=== PATIENT | female | born 1990 | race Caucasian/White ===

== ENCOUNTER 2016-12-05 07:32 | Emergency (ER) | payer OTHER ==
[2016-12-05 07:41] VITALS: BP 116/63; PULSE 92; RESP 16; TEMP 97.7
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
[2016-12-05] MEDS: IBUPROFEN 600 MG STARTER PACK 4 TAB BTL PO STA (08:47)
== END 2016-12-05 08:47 | disposition home or self-care (01) ==
LOC: EC 07:32
DX: L03.211 Cellulitis of face (principal); F41.9 Anxiety disorder, unspecified; F32.9 Major depressive disorder, single episode, unspecified; Z79.899 Other long term (current) drug therapy; Z88.8 Allergy status to other drugs, medicaments and biological substances; Z88.5 Allergy status to narcotic agent; F17.210 Nicotine dependence, cigarettes, uncomplicated
CPT/HCPCS: 99283

== ENCOUNTER 2016-12-05 13:42 | Inpatient (IN) | payer OTHER ==
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
[2016-12-05] MEDS ORDERED: RX INFO: IV CONTRAST WAS GIVEN 1 EACH MISC MISCELLANE PRN (15:54)
[2016-12-05] MEDS ORDERED: HYDROcodone/APAP 5-325MG 1 EACH TAB PO STA (16:00)
[2016-12-05 16:18] LABS: Basophils # (A) 0.1 k/uL (0-0.2); Basophils % (A) 1 %; CHCM 33.2; Eosinophils # (A) 0.3 k/uL (0-0.7); Eosinophils % (A) 3 %; HCT 42.1 % (34.0-46.0); HDW 2.38; HGB 13.6 gm/dL (11.4-16.0); Luc # (Auto) 0.21; Luc % (Auto) 2; Lymphocytes # (A) 2.6 k/uL (1.0-4.8); Lymphocytes % (A) 29 %; MCH 30.3 pg (25.0-35.0); MCHC 32.4 g/dL (31.0-37.0); MCV 93.6 fL (80.0-100.0); Monocytes # (A) 0.6 k/uL (0-1.0); Monocytes % (A) 7 %; Neutrophils # (A) 5.1 k/uL (1.3-7.7); Neutrophils % (A) 58 %; RBC 4.49 m/uL (3.80-5.40); RDW 11.8 % (11.5-15.5); WBC 8.8 k/uL (3.8-10.6); WBC (Perox) 8.81
[2016-12-05 16:25] LABS: Anion Gap 11 mmol/L; Blood Urea Nitrogen 7 mg/dL (7-17); Calcium 9.3 mg/dL (8.4-10.2); Carbon Dioxide 29 mmol/L (22-30); Chloride 105 mmol/L (98-107); Glucose 101 mg/dL (74-99); Non-African American GFR(MDRD) >60 (>60 ml/min/1.73 sqM); Potassium 4.3 mmol/L (3.5-5.1); Sodium 145 mmol/L (137-145)
[2016-12-05] MEDS ORDERED: KETOROLAC 30 MG/ML 1 ML VIAL IVP STA (16:52)
--- NOTE | 2016-12-05 17:01 | CT ---
EXAMINATION TYPE: CT orbits w con DATE OF EXAM: 12/05/2016 4:51 PM COMPARISON: NONE HISTORY: redness, swelling and pain around bilateral orbits for [address] DLP: 350 mGycm Automated exposure control for dose reduction was used. Contrast-enhanced CT of the orbits was performed in the axial and coronal planes. Bone and soft tissu e window settings are submitted. CONTRAST: Performed with IV Contrast, patient injected with 100 mL of Omnipaque 300. FINDINGS: Subcutaneous phlegmon is noted adjacent to the left maxilla anteromedially with small subperiosteal a bscess noted measuring 6.7 mm seen best on axial image 5 of 46. Dental structures are cut off the fie ld-of-view. There is some mucosal thickening involving bilateral maxillary sinuses mild in degree. Th ere is only mild right infraorbital soft tissue swelling noted without phlegmon or abscess. The orbit s are intact. I do not see evidence for preseptal or postseptal cellulitis. Optic nerves and extraocu lar musculature appear to be symmetric and unremarkable. Intra and extraconal fat are within normal l imits. Incidental nasal septal deviation right to left. IMPRESSION: BILATERAL INFRAORBITAL SOFT TISSUE EDEMA LEFT MUCH GREATER THAN RIGHT. NOTED ANTERIOR TO THE LEFT MAXILLATHERE IS AN AREA OF INFLAMMATORY PHLEGMON MEASURING 2.2 X 1.3 CM WITH SMALL SUBPERIOSTEAL ABSC ESS MEASURING 6.7 MM. DENTAL STRUCTURES ARE CUT OFF THE [id number].
[2016-12-05] MEDS ORDERED: HYDROmorphone 1 MG/ML 1 ML SYRINGE IVP STA (17:28)
[2016-12-05] MEDS ORDERED: HYDROcodone/APAP 5-325MG 1 EACH TAB PO PRN (19:10)
[2016-12-05] MEDS ORDERED: NALOXONE 0.4 MG/ML 1 ML VIAL IV PRN (19:10)
[2016-12-05] MEDS ORDERED: ACETAMINOPHEN TAB 325 MG TAB PO PRN (19:10)
[2016-12-05] MEDS ORDERED: HYDROmorphone 1 MG/ML 1 ML SYRINGE IV PRN (19:10)
--- NOTE | 2016-12-05 20:09 | XR ---
EXAMINATION TYPE: XR panorex DATE OF EXAM: 12/05/2016 7:32 PM COMPARISON: NONE HISTORY: Pain, suspect left maxillary dental abscess TECHNIQUE: Panorex FINDINGS: The left maxilla is not well-visualized, and the patient is virtually edentulous in this po sition. In addition, the left maxilla appears somewhat lucent overall, a nonspecific finding. Further diagnostic characterization can be provided with thin section CT imaging of the oral cavity if clini jesús necessary. Bones and joints and soft tissues are unremarkable otherwise. IMPRESSION: Nonspecific findings as discussed.
[2016-12-05] MEDS ORDERED: HYDROmorphone 1 MG/ML 1 ML SYRINGE IVP SCH (21:00)
[2016-12-05] MEDS: MIRTAZAPINE 15 MG TAB PO SCH (21:07)
[2016-12-05] MEDS: SODIUM CHLORIDE 0.9% 1,000 ML IV SCH (21:07)
[2016-12-05 22:54] VITALS: BMI 27.4
[2016-12-05] MEDS ORDERED: DIAZEPAM 5 MG TAB PO STA (23:23)
[2016-12-06] MEDS: HYDROmorphone 1 MG/ML 1 ML SYRINGE IVP PRN ×5 (00:04→12:27)
[2016-12-06] MEDS: IBUPROFEN 400 MG TAB PO PRN ×2 (03:33→14:27)
[2016-12-06] MEDS ORDERED: INFLUENZA VACCINE (3YR+) 60 MCG/0.5 ML SYRINGE IM ONE (06:25)
[2016-12-06] MEDS ORDERED: NON-FORMULARY DRUG (Vortioxetine Hydrobromide [Trintellix] 10 MG) PO SCH (09:00)
[2016-12-06 09:13] LABS: Basophils % (A) 1 %; CH 30.7; CHCM 32.4; Eosinophils # (A) 0.2 k/uL (0-0.7); Eosinophils % (A) 3 %; HCT 37.5 % (34.0-46.0); HDW 2.41; HGB 12.2 gm/dL (11.4-16.0); Luc # (Auto) 0.12; Luc % (Auto) 2; Lymphocytes # (A) 1.7 k/uL (1.0-4.8); Lymphocytes % (A) 25 %; MCH 30.9 pg (25.0-35.0); MCHC 32.4 g/dL (31.0-37.0); MCV 95.2 fL (80.0-100.0); Mean Platelet Volume 7.2; Monocytes # (A) 0.5 k/uL (0-1.0); Monocytes % (A) 8 %; Neutrophils # (A) 4.3 k/uL (1.3-7.7); Neutrophils % (A) 62 %; RBC 3.94 m/uL (3.80-5.40); WBC 6.9 k/uL (3.8-10.6); WBC (Perox) 7.56
[2016-12-06 09:39] LABS: ALT 146 U/L (9-52); AST 137 U/L (14-36); Alkaline Phosphatase 95 U/L (38-126); Anion Gap 8 mmol/L; Blood Urea Nitrogen 6 mg/dL (7-17); Calcium 8.5 mg/dL (8.4-10.2); Carbon Dioxide 28 mmol/L (22-30); Chloride 107 mmol/L (98-107); Glucose 87 mg/dL (74-99); Non-African American GFR(MDRD) >60 (>60 ml/min/1.73 sqM); Potassium 4.3 mmol/L (3.5-5.1); Sodium 143 mmol/L (137-145); Total Bilirubin 0.5 mg/dL (0.2-1.3)
[2016-12-06] MEDS ORDERED: DIAZEPAM 5 MG TAB PO PRN ×2 (14:36→15:55)
[2016-12-06] MEDS ORDERED: CLINDAMYCIN 300 MG in DEXTROSE 5% IN WATER 50 ML IVPB SCH ×2 (16:00)
[2016-12-06] MEDS: ACETAMINOPHEN IV (For NPO) 1,000 MG in EMPTY BAG 1 BAG IVPB SCH (16:34)
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
[2016-12-06] MEDS: NICOTINE 21MG/24HR PATCH TRANSDERM SCH (18:22)
[2016-12-06] MEDS: DEXAMETHASONE SOD PHOSPHATE 10 MG/ML 1 ML VIAL IV SCH ×2 (18:22→23:19)
[2016-12-06] MEDS: cefTRIAXone 2,000 MG in SODIUM CHLORIDE 0.9% 100 ML IVPB SCH (20:07)
[2016-12-06] MEDS: SODIUM CHLORIDE 0.9% 1,000 ML IV SCH (20:10)
--- NOTE | 2016-12-06 20:34 | CONS ---
DATE OF CONSULTATION: 12/05/2016 REASON FOR CONSULTATION: Left facial swelling/cellulitis/abscess. HISTORY OF PRESENT ILLNESS: This patient is a 26-year-old female who was admitted via the [facility] for treatment and evaluation of complaints of pain with eye movement, left facial swelling. The patient states that her symptoms started approximately 2 to 3 days prior to presenting to the emergency room. She did eventually seek medical attention and was placed on Cleocin capsules. She took 1 or 2 doses and did not notice any improvement and in fact, her symptoms seemed to get worse. The patient smokes approximately 1-1/2 packs of cigarettes per day. She has a long history of drug abuse. Although she states that she has not used drugs for the past 7 years, in my opinion this is questionable. At the present time, the patient is getting intravenous Dilaudid and states that it does not seem to be enough; however, her complaints of pain seem to be far exaggerated and well beyond the signs of pain that she is displaying. That is to say, the patient is talking without any discomfort and she apparently is eating without any significant discomfort. A CT scan and panorex done previously suggested mild left infraorbital swelling/cellulitis and a possible small subperiosteal abscess in the premaxillary area on the left. This was in the region of one of the patient's upper teeth. Although the patient seems to be eating quite well without complaints of any pain it may very well be because the nerve to the tooth is completely . The patient has been afebrile and also has a normal white count since her admission. She was admitted and immediately placed on intravenous antibiotics, Rocephin and Cleocin. In addition to this, she was given intravenous Dilaudid q.4 hours on a p.r.n. basis and according to the nurses, she has been asking for this on a regular basis. She has also been given Motrin 400 mg q.i.d. The patient denies any past history of any similar problems with respect to infections. Based upon the review of the panorex and the CT scan of the face, it is highly suggestive that the patient has a small ashley-apical abscess which is that extended somewhat superiorly into the facial soft tissues. Past medical history reveals THE PATIENT HAS ALLERGIES TO MORPHINE, HALDOL. Current medications include: 1. Trintellix. 2. Remeron. 3. Motrin and 4. Valium. It is to be noted that the patient was on Valium at home 5 mg t.i.d., but stated to me that she was actually on 10 mg at home 5 times daily. I initially agreed to up her dose of Valium, but later after reviewing the records and finding the 5-mg dose, I lowered it back to 5 mg 5 times daily. In addition to this, the patient actually informed the nurse that she was taking 20 mg 5 times daily, which is way outside the normal range and highly suggestive the fact that the patient is not completely truthful with the medical staff. She smokes approximately 1-1/2 packs of cigarettes per day. Review of systems is essentially unremarkable. PHYSICAL EXAMINATION: This patient is normocephalic. Tympanic membranes are normal. Middle ear space is free of any fluid or infection. Pupils equal, round and reactive to light and accommodation. Extraocular movements are within normal limits. Intranasal reveals moderate to severe septal deviation with compensatory hypertrophy of inferior turbinates. Intraoral examination reveals extremely poor dentition with multiple carious teeth on the mandible and on the maxilla. Palpation of the tooth in question which appears to be either a premolar or a canine tooth does not elicit any pain with palpation of the tooth itself, However, deep pressure on the surrounding gum tissues does elicit mild, but not exquisite pain. In addition to this, palpation of the facial area where the patient states that she is having the most severe pain only elicits mild tenderness. I do not feel any evidence of any fluctuance or crepitance or any suggestion of any significant abscess formation. Again, the patient's extraocular movements were within normal limits and at the time that I examined her, she was not complaining of any pain with respect to her eyes and in addition to this, she has been able to eat a normal meal. Remainder of the oropharynx is essentially unremarkable. Palpation of the neck and Cranial nerves 2-12 intact and remainder of the head and neck are all within normal limits. CHEST/CARDIOVASCULAR: Both lung ruiz are clear to percussion and auscultation. The patient is in regular sinus rhythm. S1 and S2 were present without evidence of any murmurs, S3s or S4s. The remainder of the physical exam is essentially unremarkable. IMPRESSION: 1. Mild left anterior facial cellulitis with probable small ashley-apical abscess involving the upper premolar or canine tooth, both of which are extremely carious. I suspected the nerves to both these 2 teeth and several of the other teeth in this patient's mouth are . I do not palpate any fluctuance at the gumline or in the face. 2. Drug abuse. I am highly suspicious that this patient has still been using drugs, albeit on a lesser basis than before and most likely intermittently. The fact that she is requesting a higher dose of Dilaudid or a stronger pain medication is highly suspicious for continued drug addiction. It has been my experience that most people that are truly drug-free and have successfully completed rehabilitation would do anything to avoid narcotics because they know that this may very well likely caused them to have a relapse. In fact, even after surgical procedures, patient will refuse either intravenous narcotics or home going narcotics. This patient is just the opposite and is requesting higher doses of narcotics as well as she apparently attempted to obtain higher doses of Valium the while she is in the hospital. My plan at this point is to cancel the Dilaudid and all narcotic pain killers. We will place her on Ofirmev 1000 mg IV every 6 hours,and concurrently Motrin 800 mg p.o. t.i.d. In addition to this, I am going to have the pharmacy maximize her Rocephin, which will most likely be 2 g IV q.12hr hours instead of 1 g IV 12hr, and I will increase her Cleocin from 300 mg IV q.8hr hours to 600 mg q IV 8hr. The increase in these 2 antibiotics will most likely take care of any cellulitis and will most likely cause the small abscess to resorb. In addition, we will give her 5 mg of Valium 5 times p.o. a day prn and we will not increase that. I do not believe the patient was on 10 mg or 20 mg of Valium daily times at home. 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 We will also order a nicotine patch for the patient while she is in the hospital because she is a heavy smoker. I'm going to order Restoril 30 mg p.o. q. h.s., which may be repeated in 3 hours if necessary. I had a kala discussion with the patient regarding the narcotic medications and my plan as far as helping her to achieve some pain relief, but not necessarily 100% pain relief. In addition, we are going to put her on a schedule of Decadron 10 mg IV every 6 hours x2 doses followed by 5 mg IV every 6 hours x2 doses and finally 2 mg IV of Decadron IV every 6 hours x2 doses and then stop. Certainly, the intravenous Decadron/dexamethasone will help with any swelling due to the cellulitis. Again, I do not detect any significant facial swelling on examination and deep palpation of the patient. I will re-examine the patient tomorrow and if I feel that from clinical standpoint that she has significantly improved, then I will recommend that she be discharged on an oral antibiotic such as Augmentin 875 b.i.d. or Cleocin 300 mg p.o. t.i.d. Both medications to be given for 10 days. In addition, the only pain medications that I would recommend that this patient be discharged on is either Ultram or Ultracet, both of which contain tramadol. I would strongly advise against discharging this patient is an type of narcotic medications. Apparently she already had some narcotic pills at home from her initial contact with the emergency room. These recommendations are made in an effort to help avoid sending into a relapse back into her drug addiction, although again, my medical opinion is that she is still using narcotic drugs. I initially was going to get a consult with Dr. Condon, but apparently he is out of town and therefore because she is already scheduled to have a full mouth extraction, I canceled the consultation and advised the patient's mother that as soon as the patient gets home to call their dentist and see if they can move up the scheduled extraction that she is going to undergo so that she may be fitted for full-mouth dentures. I want to take this opportunity to thank you for allowing me to assist you in the care of your patient. If I can be of any further assistance, please feel free to call my office. I will be examining this patient tomorrow afternoon and will inform the nurses of my opinion with regard to whether or not she can be discharged to home. MAKENZIE
[2016-12-06] MEDS ORDERED: NON-FORMULARY DRUG (Vortioxetine Hydrobromide [Trintellix] 20 MG) PO SCH (21:00)
[2016-12-06] MEDS: TEMAZEPAM 30 MG CAP PO SCH (21:02)
[2016-12-06] MEDS: MIRTAZAPINE 15 MG TAB PO SCH (21:02)
[2016-12-06] MEDS: IBUPROFEN 800 MG TAB PO SCH (21:03)
[2016-12-06] MEDS: DIAZEPAM 5 MG TAB PO PRN (21:11)
[2016-12-07] MEDS: ACETAMINOPHEN IV (For NPO) 1,000 MG in EMPTY BAG 1 BAG IVPB SCH ×3 (00:11→12:38)
[2016-12-07] MEDS: CLINDAMYCIN 600 MG in DEXTROSE 5% IN WATER 50 ML IVPB SCH ×8 (00:59→23:09)
[2016-12-07] MEDS: DIAZEPAM 5 MG TAB PO PRN ×6 (01:05→23:02)
[2016-12-07] MEDS: TEMAZEPAM 30 MG CAP PO PRN ×2 (01:05→23:18)
[2016-12-07] MEDS: DEXAMETHASONE SOD PHOSPHATE 10 MG/ML 1 ML VIAL IV SCH ×2 (05:28→13:46)
[2016-12-07 08:51] LABS: Anion Gap 13 mmol/L; Basophils % (A) 0 %; Blood Urea Nitrogen 8 mg/dL (7-17); CH 30.6; Calcium 9.2 mg/dL (8.4-10.2); Carbon Dioxide 23 mmol/L (22-30); Chloride 108 mmol/L (98-107); Eosinophils % (A) 0 %; Glucose 223 mg/dL (74-99); HCT 42.7 % (34.0-46.0); HDW 2.51; HGB 13.2 gm/dL (11.4-16.0); Luc # (Auto) 0.02; Luc % (Auto) 0; Lymphocytes # (A) 0.4 k/uL (1.0-4.8); Lymphocytes % (A) 7 %; MCH 29.7 pg (25.0-35.0); Mean Platelet Volume 7.5; Monocytes # (A) 0.1 k/uL (0-1.0); Monocytes % (A) 1 %; Neutrophils # (A) 5.7 k/uL (1.3-7.7); Neutrophils % (A) 91 %; Non-African American GFR(MDRD) >60 (>60 ml/min/1.73 sqM); Potassium 4.4 mmol/L (3.5-5.1); RBC 4.46 m/uL (3.80-5.40); RDW 11.7 % (11.5-15.5); Sodium 144 mmol/L (137-145); WBC 6.3 k/uL (3.8-10.6); WBC (Perox) 6.36
[2016-12-07] MEDS: NICOTINE 21MG/24HR PATCH TRANSDERM SCH (09:26)
[2016-12-07] MEDS: IBUPROFEN 800 MG TAB PO SCH ×4 (09:26→22:25)
[2016-12-07] MEDS: cefTRIAXone 2,000 MG in SODIUM CHLORIDE 0.9% 100 ML IVPB SCH ×2 (10:10→20:30)
[2016-12-07] MEDS ORDERED: traMADol 50 MG TAB PO SCH (14:00)
[2016-12-07] MEDS ORDERED: RX INFO: IV CONTRAST WAS GIVEN 1 EACH MISC MISCELLANE PRN ×2 (16:46→18:32)
[2016-12-07] MEDS: DEXAMETHASONE SOD PHOSPHATE 4 MG/ML 1 ML VIAL IV SCH ×2 (17:10→23:52)
[2016-12-07] MEDS ORDERED: HYDROcodone/APAP 5-325MG 1 EACH TAB PO PRN (18:08)
--- NOTE | 2016-12-07 18:44 | PN ---
DATE OF SERVICE: 12/07/2016 ADMITTING DIAGNOSIS: Left facial cellulitis, most likely due to small left periapical abscess involving the maxillary canine or premolar teeth. SUBJECTIVE: The patient is stable and vital signs are stable and the patient is afebrile. The patient is not in any acute distress or discomfort at this time, although she complains of pain, especially since we have withdrawn the Dilaudid from her pain control panel. She is eating well and not having any difficulty chewing. OBJECTIVE: Examination of the head and neck with attention to the area in question reveals that there is essentially no clinical evidence of any soft tissue swelling of the right or left face/maxillary area. Even with deep palpation of the area in question on the left side. There is very little pain elicited. Intraoral inspection does not reveal any significant inflammation or swelling or tenderness of the gum. Overall, the patient's clinical exam appears to have improved markedly since yesterday. ASSESSMENT: Resolving left facial cellulitis, left periapical abscess. PLAN: I discussed with the patient that I do not intend to resume any narcotic pain medication at this time. I feel that because her possible periapical abscess was small and the facial cellulitis was caught early enough that the combination antibiotics of Rocephin and Cleocin should resolve this. In addition to this, it appears that the combination of the Decadron, Motrin, and IV Ofirmev appears to be controlling her pain, despite her complaints. We will continue the present regimen for this patient. I contemplating placing the patient on Tramadol (Ultram); however, this is actually just another opioid, albeit a weak one. It still has the addiction potential of Vicodin, OxyContin, etc. I would like to keep the patient an additional 24 hours and have her undergo a repeat CT scan of the face/sinuses with and without contrast and dependent on these findings, I will contemplate discharging her tomorrow on Motrin and Cleocin. Again, I advised the patient that the proper treatment for her condition would be to get the offending tooth or teeth extracted as soon as possible. I will see the patient tomorrow some time before 1 p.m. and make a decision. At this point I feel she has progressed satisfactorily.
[2016-12-07] MEDS: SODIUM CHLORIDE 0.9% 1,000 ML IV SCH (20:30)
[2016-12-07] MEDS: TEMAZEPAM 30 MG CAP PO SCH (20:30)
[2016-12-07] MEDS: MIRTAZAPINE 15 MG TAB PO SCH (20:30)
[2016-12-07] MEDS ORDERED: TRINTELLIX 20 MG PO SCH (21:00)
[2016-12-07] MEDS: HYDROcodone/APAP 7.5-325MG 1 EACH TAB PO PRN (23:01)
[2016-12-08 01:25] VITALS: RESP 18
[2016-12-08] MEDS: DIAZEPAM 5 MG TAB PO PRN ×4 (03:07→16:04)
[2016-12-08] MEDS: HYDROcodone/APAP 7.5-325MG 1 EACH TAB PO PRN ×2 (06:11→12:04)
[2016-12-08] MEDS: CLINDAMYCIN 600 MG in DEXTROSE 5% IN WATER 50 ML IVPB SCH ×4 (07:52→15:36)
[2016-12-08] MEDS: NICOTINE 21MG/24HR PATCH TRANSDERM SCH (07:52)
[2016-12-08 07:55] VITALS: BP 115/60; PULSE 87; TEMP 97.2
--- NOTE | 2016-12-08 08:55 | CT ---
EXAMINATION TYPE: CT facial bones wo/w con DATE OF EXAM: 12/08/2016 7:48 AM COMPARISON: CT orbits from 3 days earlier. HISTORY: Patient complains of facial swelling and sore throat. CT DLP: 1571.5 mGycm Automated exposure control for dose reduction was used. CONTRAST: CT scan of the facial bones is performed without and with IV Contrast, patient injected with 100 mL o f Omnipaque 300. TECHNIQUE: CT scan of the facial bones is performed without contrast, axial images are obtained, zheng nal reformatted images are also reviewed. FINDINGS: There is interval improvement in diffuse subcutaneous edema most pronounced over the left m axilla. Area of abnormal focal soft tissue consistent with phlegmon and possible small abscess remain s present medial left maxillary level near axial image 37 is redemonstrated. No drainable abscess is seen currently. There is some persistent mild to moderate subcutaneous edema over the anterior maxill janice sinuses bilaterally seen best on axial image 47. Some improvement on left side is present. Right- sided stable or slightly worsened. There is interval improvement in abnormal anterior globe mucosal enhancement in both globes suggestin g improving inflammatory process. Bilateral globes are intact. Intraconal fat is preserved bilaterall y. Paranasal sinuses are grossly clear with exception of 7 mm mucous retention cyst or polyp anteriorly in left maxillary sinus on axial image 42. Mild abnormal mucosal thickening anterior and inferior to this on prior study is resolved. No new well-formed fluid collection or abscess is seen. Visualized portion of brain parenchyma is fel t within normal limits. IMPRESSION: Inflammatory changes at level of bilateral anterior orbits is improving. Inflammatory quinn nges at level of maxilla are improving on the left, stable or slightly worsened on the right. Focal p hlegmon or possible small abscess remains present and felt stable left maxilla level. Improved left m axillary sinus disease noted.
[2016-12-08] MEDS: cefTRIAXone 2,000 MG in SODIUM CHLORIDE 0.9% 100 ML IVPB SCH (09:03)
[2016-12-08] MEDS: IBUPROFEN 800 MG TAB PO SCH ×2 (09:03→13:56)
[2016-12-08] MEDS ORDERED: PNEUMOCOCCAL VACC-PNEUMOVAX 23 25 MCG/0.5 ML VIAL IM ONE (16:00)
[2016-12-08] MEDS ORDERED: INFLUENZA VACCINE (3YR+) 60 MCG/0.5 ML SYRINGE IM ONE (16:00)
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
== END 2016-12-08 16:09 | disposition home or self-care (01) | DRG 158 ==
LOC: EC 13:42 → 4MS4W 19:21
PROVIDERS: ADMIT Internal Medicine; ATTEND Internal Medicine
DX: K04.7 Periapical abscess without sinus (principal); H05.012 Cellulitis of left orbit; L03.211 Cellulitis of face; K02.9 Dental caries, unspecified; J34.2 Deviated nasal septum; F43.10 Post-traumatic stress disorder, unspecified; F32.9 Major depressive disorder, single episode, unspecified; F19.10 Other psychoactive substance abuse, uncomplicated; R50.9 Fever, unspecified; M27.2 Inflammatory conditions of jaws; F41.9 Anxiety disorder, unspecified; N80.9 Endometriosis, unspecified; G47.00 Insomnia, unspecified; F17.210 Nicotine dependence, cigarettes, uncomplicated; Z81.4 Family history of other substance abuse and dependence; Z88.5 Allergy status to narcotic agent; Z88.8 Allergy status to other drugs, medicaments and biological substances; Z87.442 Personal history of urinary calculi; Z91.5 Personal history of self-harm; Z81.8 Family history of other mental and behavioral disorders; Z82.49 Family history of ischemic heart disease and other diseases of the circulatory system; Z79.1 Long term (current) use of non-steroidal anti-inflammatories (NSAID); Z79.891 Long term (current) use of opiate analgesic; Z79.899 Other long term (current) drug therapy; Z62.810 Personal history of physical and sexual abuse in childhood
CPT/HCPCS: 36415; 70355; 70481; 70488; 80048; 80053; 85025; 96365; 96375; 96376; 99283; 99285

== ENCOUNTER 2017-03-24 07:00 | Inpatient (IN) | payer MEDICAID ==
[2017-03-24] MEDS ORDERED: MAG HYDROX/AL HYDROX/SIMETH 30 ML CUP PO PRN (07:46)
[2017-03-24] MEDS ORDERED: MAGNESIUM HYDROXIDE 2,400 MG/10 ML CUP PO PRN (07:46)
[2017-03-24] MEDS ORDERED: busPIRone HCl 5 MG TAB PO SCH (09:00)
[2017-03-24] MEDS ORDERED: NON-FORMULARY DRUG (Atomoxetine Hcl [Strattera] 80 MG) PO SCH (09:00)
[2017-03-24] MEDS: NICOTINE 14MG/24HR PATCH TRANSDERM SCH (09:54)
[2017-03-24] MEDS: chlorproMAZINE 25 MG TAB PO SCH ×4 (09:55→21:48)
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
[2017-03-24] MEDS ORDERED: busPIRone HCl 10 MG TAB ONE (10:22)
[2017-03-24] MEDS: busPIRone HCl 10 MG TAB PO SCH ×3 (10:30→21:47)
[2017-03-24 12:29] VITALS: BMI 23.3
[2017-03-24] MEDS ORDERED: DOCUSATE 100 MG CAP PO PRN (14:06)
[2017-03-24 15:08] LABS: Amorphous Sediment,Urine Rare /hpf; Appearance,Urine Clear (Clear); Bacteria,Urine Moderate /hpf; Bilirubin,Urine Negative (Negative); Glucose,Urine (UA) Negative (Negative); Ketones,Urine Negative (Negative); Leukocyte Esterase,Urine Small (Negative); Mucus,Urine Rare /hpf; Nitrite,Urine Negative (Negative); PH, Urine 5.5 (5.0-8.0); Particle Count 2951; Protein,Urine Negative (Negative); RBC,Urine 5 /hpf (0-5); Specific Gravity,Urine 1.012 (1.001-1.035); Squamous Epithelial Cell,Urine 5 /hpf (0-4); UA Billing (MACRO vs. MICRO) MICRO; Urobilinogen,Urine <2.0 mg/dL (<2.0); WBC,Urine 22 /hpf (0-5)
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
[2017-03-24] MEDS: ACETAMINOPHEN TAB 325 MG TAB PO PRN (15:46)
[2017-03-24] MEDS ORDERED: chlorproMAZINE 25 MG TAB PO SCH (16:00)
[2017-03-24] MEDS ORDERED: busPIRone HCl 10 MG TAB PO SCH (16:00)
--- NOTE | 2017-03-24 17:14 | CONS ---
DATE OF CONSULTATION: 03/24/2017 REASON FOR CONSULTATION: Advice regarding nephrolithiasis and other multiple medical issues, requested by Psychiatry. HISTORY OF PRESENT ILLNESS: This 26-year-old woman with past medical history of nephrolithiasis, IV drug abuse, methadone and OxyContin, history of laparoscopic surgery for endometriosis, anxiety, bipolar, depression, PTSD being followed by Dr. Muñoz in the outpatient setting was admitted for psychiatric evaluation. The patient was recently admitted to [facility] with left facial cellulitis and left periapical abscess in the maxilla. Treated symptomatically. Patient improved significantly. There is no history of fever, rigors. No history of headache, loss of consciousness or seizures. No chest pain, palpitations. PAST MEDICAL HISTORY: Nephrolithiasis and iv drug abuse, methadone, OxyContin, anxiety, bipolar, depression and PTSD. Medications prior to admission include home medications are: 1. Desyrel 400 mg q.h.s. 2. Buspirone 50 mg p.o. t.i.d. 3. Trintellix 10 mg p.o. daily. 4. Belsomra 15 mg q.h.s. 5. Colace 100 mg daily p.r.n. 6. Vraylar 3 mg p.o. daily. 7. Suboxone 8 mg 0.5 sublingual daily. ALLERGIES: TANNEX, HALOPREDONE, MORPHINE. FAMILY HISTORY: History of hypertension in the family. SOCIAL HISTORY: History of IV drug abuse, history of heroin, marijuana as mentioned. History of nicotine dependence. REVIEW OF SYSTEMS: ENT: No diminished hearing, no diminished vision. CARDIOVASCULAR: No angina. RESPIRATORY: No cough. GI: No nausea. : No dysuria. NERVOUS SYSTEM: No numbness or weakness. ALLERGY/IMMUNOLOGY: No asthma or hayfever. MUSCULOSKELETAL: As mentioned earlier. HEMATOLOGY/ONCOLOGY: No history of anemia. ENDOCRINE: No history diabetes or hypothyroidism. CONSTITUTIONAL: As mentioned earlier. DERMATOLOGY: Negative. RHEUMATOLOGY: Negative. PSYCHIATRY: As mentioned earlier. PHYSICAL EXAMINATION: The patient is alert and oriented x3. Pulse is 101, blood pressure 134/77, respirations 18, temperature 98.4, pulse ox 97% on room air. HEENT: Conjunctivae normal. Oral mucosa moist. NECK: No jugular venous distention. No carotid bruit. No lymph node enlargement. CARDIOVASCULAR: S1 and S2, muffled. No S3, no S4. RESPIRATORY: Breath sounds diminished at the bases. No rhonchi, no crackles. ABDOMEN: Soft, nontender. No mass palpable. No hepatosplenomegaly. LEGS: No edema, no swelling. NERVOUS SYSTEM: Higher function as mentioned. Cranial nerves grossly intact. No facial deviation. Head movements are full. No nystagmus. No diplopia. Moves all four limbs. No focal motor sensory deficits. LYMPHATIC: No lymphadenopathy in the neck, axillae or groin. SKIN: No ulcer, rash or bleeding. JOINTS: No active deforming arthropathy. LABS: Current labs are not available. The previous labs; CBC within normal limits. Coags are normal. Chemistry shows glucose of 223. Albumin 3.2. ASSESSMENT: 1. History of nephrolithiasis. 2. History of IV drug abuse with methadone and OxyContin. 3. History of laparoscopic surgery for endometriosis. 4. History of ureteral stent right with removal on multiple occasions. 5. Multiple lithotripsy procedures. 6. Anxiety, bipolar, depression, PTSD not otherwise specified. 7. History of nicotine dependence. 8. History of facial cellulitis. 9. History of increased random blood sugar. 10. Increased AST, ALT. RECOMMENDATIONS AND DISCUSSION: In this 26-year-old woman who presented with multiple medical issues, I recommend to continue with the current medications, continue monitoring and symptomatic treatment. Continue with smoking cessation. I will be happy to review any abnormal labs. Otherwise, we will follow the patient closely. Patient may be asked to follow up with the primary physician closely after discharge. Thank you for letting us participate in this patient's care. See orders for details. Symptomatic treatment may be provided. MTDD
[2017-03-24] MEDS ORDERED: traZODone HCL 100 MG TAB PO SCH (21:00)
[2017-03-24] MEDS: risperiDONE 0.5 MG TAB PO PRN (21:47)
[2017-03-24] MEDS: MIRTAZAPINE 15 MG TAB PO SCH (21:47)
[2017-03-25] MEDS: chlorproMAZINE 25 MG TAB PO SCH ×4 (09:38→23:46)
[2017-03-25] MEDS: busPIRone HCl 10 MG TAB PO SCH ×3 (09:39→21:11)
[2017-03-25] MEDS: NICOTINE 14MG/24HR PATCH TRANSDERM SCH (09:40)
[2017-03-25] MEDS ORDERED: VENLAFAXINE HCL ER 75 MG CAP PO STA (10:52)
--- NOTE | 2017-03-25 11:02 | P.PN ---
Progress Note - Text INTERVERAL HISTORY: Patient called to nurse's station followed me to office. Reports she slept very well, was surprised, stated it was the best in years. She did take the Risperdal 0.5 mg. She reports that she continues to feel severe anxiety during the day requesting to have Risperdal when necessary. Discussed past history of drug use, she reported today that she did start using heroin at the age of 16, initially snorting then moving to injecting. She states that she then went into substance abuse treatment and was clean for 2 years. Then began to use prescription drugs and progressed to current situation. She has had multiple trials of almost every medication, however the trials do not appear to have been long enough nor was she compliant. Reviewed options for anxiety and depression, controlled substances are not an option. Discussed the use of antipsychotic medications as not being ideal for anxiety or depression but to help her feel more comfortable we will continue to use Thorazine when necessary for anxiety and Risperdal when necessary for sleep. She reports she continues to have suicidal ideation but denies plan or intent, thinks about her 5-year-old son. MENTAL STATUS EXAM: Alert and oriented 3, dressed appropriately in street clothing, pleasant cooperative. Speech low volume, normal rate and production. No KEVEN no FOI, no delusions, no ideas of reference. Denies auditory visual hallucinations. Mood dysphoric, affect constricted. + Suicidal ideation PLAN: Continue inpatient psychiatric admission, suicide precautions, for safety purposes. Medication management for severe anxiety and depression. Encouraged milieu therapy, working with staff to develop coping skills to control anxiety. Start gabapentin 100 mg 3 times a day. Start Effexor XR 75 mg now increased to 150 mg tomorrow. Continue with Thorazine as when necessary for anxiety throughout the day, Risperdal 0.5 mg when necessary insomnia of one hour after taking Remeron and Thorazine
[2017-03-25] MEDS: GABAPENTIN 100 MG CAP PO SCH ×3 (13:38→21:13)
[2017-03-25] MEDS: NICOTINE POLACRILEX 2 MG GUM BUCCAL PRN (14:20)
[2017-03-25] MEDS: MIRTAZAPINE 15 MG TAB PO SCH (21:11)
[2017-03-25] MEDS: risperiDONE 0.5 MG TAB PO PRN (23:45)
[2017-03-26 06:33] VITALS: TEMP 98.1
[2017-03-26] MEDS: chlorproMAZINE 25 MG TAB PO SCH ×4 (08:59→21:04)
[2017-03-26] MEDS: GABAPENTIN 100 MG CAP PO SCH ×3 (08:59→21:04)
[2017-03-26] MEDS: busPIRone HCl 10 MG TAB PO SCH ×3 (08:59→21:04)
[2017-03-26] MEDS: VENLAFAXINE HCL ER 150 MG CAP PO SCH (08:59)
[2017-03-26] MEDS: NICOTINE POLACRILEX 2 MG GUM BUCCAL PRN ×3 (08:59→19:10)
[2017-03-26] MEDS ORDERED: AMITRIPTYLINE HCL 25 MG TAB PO PRN (10:05)
--- NOTE | 2017-03-26 10:05 | P.PN ---
Progress Note - Text INTERVERAL HISTORY:Patient approached proposal manager writer in hallway, followed to office. Reports she did not sleep well last night. States no thorazine, took remeron and fell asleep for about an hour. Then requested risperidone and then slept. Patient requests if she could have a higher dose of Thorazine, Risperdal due to anxiety. Discussed cognitive behavioral techniques that can help with anxiety, she is using breathing techniques, coloring, and humming. We discussed physical exercise as another way to help with both anxiety and depression. Patient is focused on returning to [facility], recognizes that it is one of the better ones that she has been to, teaching her different coping mechanisms and behaviors to address her substance use. We discussed brain mechanisms, a variety of different medication classes. She agreed to allow medication changes some time to take effect. Although not reporting suicidal ideation, vague thoughts of . MENTAL STATUS EXAM: Alert and oriented 3, dressed in hospital gown. Speech normal volume rate production. No KEVEN, no FOI, no delusions, no ideas of reference. No auditory or visual hallucinations, no command hallucinations. Mood dysphoric, anxious, affect constricted. No suicidal plan or intent. PLAN: 1.Continue inpatient psychiatric hospitalization, for safety purposes, suicide precautions, and medication management for improved depression and anxiety. 2. Continue to participate in milieu therapy, using the variety of techniques she is learning, throughout the day to address her anxiety. 3. She is not taking Strattera. 4.Tolerating new medication changes i.e. Effexor, gabapentin. 5. Will add amitriptyline at bedtime to help with sedation. 6. Would like to avoid antipsychotics in this young woman if possible, use a traditional mood stabilizer such as Depakote, however the Thorazine and Risperdal are providing some benefit in terms of anxiety and sleep.
[2017-03-26] MEDS: ACETAMINOPHEN TAB 325 MG TAB PO PRN (13:51)
[2017-03-26] MEDS: MIRTAZAPINE 15 MG TAB PO SCH (21:04)
[2017-03-26] MEDS ORDERED: METOPROLOL TARTRATE 25 MG TAB PO SCH (22:00)
[2017-03-27 06:40] VITALS: RESP 16
[2017-03-27] MEDS: busPIRone HCl 10 MG TAB PO SCH (08:49)
[2017-03-27] MEDS: VENLAFAXINE HCL ER 150 MG CAP PO SCH (08:50)
[2017-03-27] MEDS: chlorproMAZINE 25 MG TAB PO SCH ×2 (08:50→12:31)
[2017-03-27] MEDS: GABAPENTIN 100 MG CAP PO SCH (08:50)
[2017-03-27] MEDS ORDERED: METOPROLOL TARTRATE 12.5 MG TAB PO SCH (09:00)
[2017-03-27] MEDS: NICOTINE POLACRILEX 2 MG GUM BUCCAL PRN (09:03)
--- NOTE | 2017-03-27 10:40 | P.PN ---
Progress Note - Text INTERVERAL HISTORY:Patient patient knocked on office door, came in and asked if she could be discharged today. Reports that she slept well last night took the Thorazine and the Remeron fell asleep, woke up and then went to nurse and asked for medication , fell asleep woke up a couple of times but did not ask for a second medication and eventually slept through to 8:30. Thinks she got about 7 hours of sleep last night. States she is feeling better not as anxious as when she came in, reports she is using techniques that she is been learning here on the unit, and what she learned at [facility]. Her affect is bright and appropriate. She reports she like to leave today and get back to the [facility], and not stay here over the long weekend. Discussed in treatment team meeting, and executive secretary social welfare stated that [facility] is ready for her to come back, transportation will need to be arranged. Patient is not reporting anxiety, depression, restlessness, hopelessness, or suicidal ideation. Hospital course: Patient was admitted to the mental health unit via transfer, after she became acutely anxious and tearful overwhelmed with suicidal ideation , while at [facility]. Patient has a long history of polysubstance use dependence, primary drug of choice opiates. Began using heroin at 16 at the urging of her boyfriend progressed rapidly to injecting. She then reports, although questionable, a 2 year history of abstinence. Then reports she had kidney stones after the of her 5-year-old son, prescribed oxycodone and began to miss use. Recently she stole opiates from work, arrested charged and convicted, and court ordered to 6 months of rehab or 1 year in residential. She was admitted to [facility] on February 27, that was her last day of taking Xanax. She reports that she has not had opiates for 50 days. She presented tearful labile, demanding Xanax. Evaluation of past psychiatric problems, did not support a diagnosis of ADHD. Clear symptoms of kianna or hypomania, without substance use was not elicited. She was depressed, anxious and suicidal. After not receiving Xanax or any other controlled substance she requested a new physician, but within 2-3 hours she approached scenario writer apologizing, and reporting she recognized she was drug-seeking. She agreed to continue with scenario writer for treatment. Started started Thorazine 50 mg 4 times a day, due to her report that he had helped her in the past. She also wanted Risperdal at bedtime this was prescribed as a when necessary 0.5 mg for insomnia. She was started on Effexor XR 75 mg every morning, tolerated, increase to 150 mg. Gabapentin 100 mg 3 times a day was also initiated. She was active in groups, learning coping mechanisms to deal with anxiety. She became less reactive and labile, having vague suicidal ideations up to yesterday. Today appearing bright, denying suicidal ideation, wishing to be discharged so she can get back to the [facility]. MENTAL STATUS EXAM: Alert and oriented 3, good eye contact, dressed in hospital gown. Pleasant and cooperative Speech normal volume rate production. No KEVEN, no FOI, no pressured speech. Coherent logical and goal directed. No auditory or visual hallucinations. Mood neutral to euthymic, affect full range decreased intensity. No suicidal, no homicidal ideation Memory grossly intact Cognition average intelligence. Assessment: 26-year-old female with long history of polysubstance dependence, primary drug of choice opiates. Was court ordered to rehab for 6 months, entered [facility] February 27. [facility] does not allow the use of benzodiazepines and her Xanax was discontinued. Initially she felt she was doing okay but gradually, began to feel more anxious and distressed, overwhelmed , and suicidal. [facility] took her to a local emergency room where she was assessed to be a danger to self and eventually admitted to our unit here. She carries a diagnosis of bipolar disorder, ADHD, anxiety disorder unspecified , insomnia. Patient does not meet criteria for ADHD, discontinued Strattera. Patient does appear to have extreme displays of emotion, however it was difficult to determine if she meets criteria for bipolar disorder, and without clear. Of abstinence from all substances could not make that diagnosis. She does have traits of borderline personality disorder, with extreme emotional incontinence. No psychosis. No suicidal ideation. Safe for outpatient treatment Depression, unspecified Anxiety disorder, unspecified Suicidal ideation, resolved Polysubstance dependence in remission Bipolar disorder, unspecified, rule out substance-induced, versus borderline personality disorder. PLAN: Discussion at team meeting and it was agreed she is stable to be discharged, back to [facility], if they agree to readmitting her today. Increase Effexor XR to 25 every morning beginning tomorrow morning. BuSpar 20 mg 3 times a day Remeron 15 mg daily at bedtime Gabapentin 100 mg 3 times a day Amitriptyline 25 mg daily at bedtime when necessary insomnia Thorazine 50 mg 4 times a day when necessary severe anxiety
[2017-03-27 11:04] VITALS: BP 98/56; PULSE 94
--- NOTE | 2017-03-27 11:37 | P.DS ---
Providers Date of admission: 03/24/17 07:10 Expected date of discharge: 03/27/17 Attending physician: Alessandra Byrnes MD Consults: 03/24/17 07:46 Consult Physician Routine Consulting Provider: Feng Becker Consult Reason/Comments: follow up h & p Do you want consulting provider notified?: Yes Primary care physician: Tereso [facility] Course: HPI:Patient patient knocked on office door, came in and asked if she could be discharged today. Reports that she slept well last night took the Thorazine and the Remeron fell asleep, woke up and then went to nurse and asked for medication , fell asleep woke up a couple of times but did not ask for a second medication and eventually slept through to 8:30. Thinks she got about 7 hours of sleep last night. States she is feeling better not as anxious as when she came in, reports she is using techniques that she is been learning here on the unit, and what she learned at [facility]. Her affect is bright and appropriate. She reports she like to leave today and get back to the [facility], and not stay here over the long weekend. Discussed in treatment team meeting, and psychiatric social worker stated that [facility] is ready for her to come back, transportation will need to be arranged. Patient is not reporting anxiety, depression, restlessness, hopelessness, or suicidal ideation. Hospital course: Patient was admitted to the mental health unit via transfer, after she became acutely anxious and tearful overwhelmed with suicidal ideation , while at [facility]. Patient has a long history of polysubstance use dependence, primary drug of choice opiates. Began using heroin at 16 at the urging of her boyfriend progressed rapidly to injecting. She then reports, although questionable, a 2 year history of abstinence. Then reports she had kidney stones after the of her 5-year-old son, prescribed oxycodone and began to miss use. Recently she stole opiates from work, arrested charged and convicted, and court ordered to 6 months of rehab or 1 year in long term. She was admitted to [facility] on February 27, that was her last day of taking Xanax. She reports that she has not had opiates for 50 days. She presented tearful labile, demanding Xanax. Evaluation of past psychiatric problems, did not support a diagnosis of ADHD. Clear symptoms of kianna or hypomania, without substance use was not elicited. She was depressed, anxious and suicidal. After not receiving Xanax or any other controlled substance she requested a new physician, but within 2-3 hours she approached fiction writer apologizing, and reporting she recognized she was drug-seeking. She agreed to continue with fiction writer for treatment. Started started Thorazine 50 mg 4 times a day, due to her report that he had helped her in the past. She also wanted Risperdal at bedtime this was prescribed as a when necessary 0.5 mg for insomnia. She was started on Effexor XR 75 mg every morning, tolerated, increase to 150 mg. Gabapentin 100 mg 3 times a day was also initiated. She was active in groups, learning coping mechanisms to deal with anxiety. She became less reactive and labile, having vague suicidal ideations up to yesterday. Today appearing bright, denying suicidal ideation, wishing to be discharged so she can get back to the [facility]. MENTAL STATUS EXAM: Alert and oriented 3, good eye contact, dressed in hospital gown. Pleasant and cooperative Speech normal volume rate production. No KEVEN, no FOI, no pressured speech. Coherent logical and goal directed. No auditory or visual hallucinations. Mood neutral to euthymic, affect full range decreased intensity. No suicidal, no homicidal ideation Memory grossly intact Cognition average intelligence. Assessment: 26-year-old female with long history of polysubstance dependence, primary drug of choice opiates. Was court ordered to rehab for 6 months, entered [facility] February 27. [facility] does not allow the use of benzodiazepines and her Xanax was discontinued. Initially she felt she was doing okay but gradually, began to feel more anxious and distressed, overwhelmed , and suicidal. [facility] took her to a local emergency room where she was assessed to be a danger to self and eventually admitted to our unit here. She carries a diagnosis of bipolar disorder, ADHD, anxiety disorder unspecified , insomnia. Patient does not meet criteria for ADHD, discontinued Strattera. Patient does appear to have extreme displays of emotion, however it was difficult to determine if she meets criteria for bipolar disorder, and without clear. Of abstinence from all substances could not make that diagnosis. She does have traits of borderline personality disorder, with extreme emotional incontinence. No psychosis. No suicidal ideation. Safe for outpatient treatment Depression, unspecified Anxiety disorder, unspecified Suicidal ideation, resolved Polysubstance dependence in remission Bipolar disorder, unspecified, rule out substance-induced, versus borderline personality disorder. PLAN: Discussion at team meeting and it was agreed she is stable to be discharged, back to [facility], if they agree to readmitting her today. Increase Effexor XR to 25 every morning beginning tomorrow morning. BuSpar 20 mg 3 times a day Remeron 15 mg daily at bedtime Gabapentin 100 mg 3 times a day Amitriptyline 25 mg daily at bedtime when necessary insomnia Thorazine 50 mg 4 times a day when necessary severe anxiety Patient declined nicotine replacement at this time Pertinent Studies: none Procedures: none Plan - Discharge Summary Discharge Medication List Atomoxetine HCl [Strattera] 80 mg PO QAM 03/24/17 [History] Buprenorphine HCl/Naloxone HCl [Suboxone 8 mg-2 mg Sl Film] 0.5 film SUBLINGUAL DAILY 03/24/17 [History] Cariprazine HCl [Vraylar] 3 mg PO DAILY 03/24/17 [History] Docusate [Colace] 100 mg PO DAILY PRN 03/24/17 [History] Suvorexant [Belsomra] 15 mg PO HS 03/24/17 [History] Vortioxetine Hydrobromide [Trintellix] 10 mg PO DAILY 03/24/17 [History] busPIRone HCL 15 mg PO TID 03/24/17 [History] traZODone HCL [Desyrel] 400 mg PO HS 03/24/17 [History] Follow up Appointment(s)/Referral(s): Intake, intake [Other] - 03/28/17 9:00 am (Continue seeing Alba Sanchez at [facility]. Follow up with [facility] when released from [facility].)
[2017-03-28] MEDS ORDERED: VENLAFAXINE HCL ER 75 MG CAP PO SCH (09:00)
[2017-04-01 14:12] LABS: Metanephrine, Free 50 pg/mL (< OR = 57); Total, Free (MN + NMN) 115 pg/mL (< OR = 205)
== END 2017-03-27 14:02 | disposition designated cancer center or children's hospital (05) | DRG 881 ==
LOC: 3MHU 07:10
PROVIDERS: ADMIT Psychiatry & Neurology Addiction Medicine; ATTEND Psychiatry & Neurology Addiction Medicine
DX: F32.9 Major depressive disorder, single episode, unspecified (principal); R45.851 Suicidal ideations; K51.90 Ulcerative colitis, unspecified, without complications; F31.9 Bipolar disorder, unspecified; F60.3 Borderline personality disorder; F19.21 Other psychoactive substance dependence, in remission; F11.21 Opioid dependence, in remission; G47.00 Insomnia, unspecified; F43.10 Post-traumatic stress disorder, unspecified; F90.9 Attention-deficit hyperactivity disorder, unspecified type; F41.9 Anxiety disorder, unspecified; F17.210 Nicotine dependence, cigarettes, uncomplicated; Z81.8 Family history of other mental and behavioral disorders; Z87.442 Personal history of urinary calculi; Z91.5 Personal history of self-harm; Z79.899 Other long term (current) drug therapy
CPT/HCPCS: 81001; 81025; 83835; 84443; 93005

== ENCOUNTER 2017-08-07 16:10 | Emergency (ER) | payer OTHER ==
[2017-08-07] MEDS ORDERED: ACETAMINOPHEN TAB 500 MG TAB PO STA (16:37)
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
[2017-08-07] MEDS ORDERED: SODIUM CHLORIDE 0.9% 1,000 ML IV STA (17:57)
[2017-08-07] MEDS ORDERED: ONDANSETRON 4 MG/2 ML VIAL IVP STA (17:57)
[2017-08-07] MEDS ORDERED: KETOROLAC 30 MG/ML 1 ML VIAL IVP STA (17:57)
[2017-08-07 18:16] LABS: Basophils # (A) 0.1 k/uL (0-0.2); Basophils % (A) 0 %; CH 31.6; CHCM 32.8; Eosinophils # (A) 0.3 k/uL (0-0.7); Eosinophils % (A) 2 %; HCT 39.9 % (34.0-46.0); HDW 2.27; HGB 13.2 gm/dL (11.4-16.0); Luc % (Auto) 2; Lymphocytes # (A) 3.1 k/uL (1.0-4.8); Lymphocytes % (A) 24 %; MCH 32.1 pg (25.0-35.0); MCHC 33.2 g/dL (31.0-37.0); MCV 96.8 fL (80.0-100.0); Mean Platelet Volume 7.5; Monocytes # (A) 0.7 k/uL (0-1.0); Monocytes % (A) 5 %; Neutrophils # (A) 8.7 k/uL (1.3-7.7); Neutrophils % (A) 67 %; RBC 4.12 m/uL (3.80-5.40); RDW 12.2 % (11.5-15.5); WBC (Perox) 12.68
[2017-08-07] MEDS ORDERED: RX INFO: IV CONTRAST WAS GIVEN 1 EACH MISC MISCELLANE PRN (18:30)
[2017-08-07 18:31] LABS: ALT 50 U/L (9-52); AST 17 U/L (14-36); Alkaline Phosphatase 88 U/L (38-126); Anion Gap 11 mmol/L; Blood Urea Nitrogen 7 mg/dL (7-17); Calcium 9.3 mg/dL (8.4-10.2); Carbon Dioxide 24 mmol/L (22-30); Chloride 107 mmol/L (98-107); Glucose 97 mg/dL (74-99); Non-African American GFR(MDRD) >60 (>60 ml/min/1.73 sqM); Potassium 3.8 mmol/L (3.5-5.1); Sodium 142 mmol/L (137-145); Total Bilirubin 0.3 mg/dL (0.2-1.3)
[2017-08-07] MEDS ORDERED: LORazepam 2 MG/ML INJ IV STA (18:31)
[2017-08-07] MEDS ORDERED: HYDROmorphone 1 MG/ML 1 ML SYRINGE IVP STA ×2 (18:37→19:41)
--- NOTE | 2017-08-07 19:33 | CT ---
EXAMINATION TYPE: CT facial bones w con DATE OF EXAM: 08/07/2017 COMPARISON: NONE HISTORY: Left sided facial swelling CT DLP: 789.4 mGycm Automated exposure control for dose reduction was used. CONTRAST: CT scan of the facial bones is performed with IV Contrast, patient injected with 100 mL of Omnipaque 300. TECHNIQUE: CT scan of the sinuses is performed without contrast, axial images are obtained, coronal r eformatted images are also reviewed. FINDINGS: The orbital margins are intact. There is fairly normal aeration of the paranasal sinuses. T here is a very small mucous retention cyst in the left maxillary sinus. There is bilateral patency of the ostiomeatal complex. The maxilla is intact. Mandible is intact. Zygomatic arches appear normal. Nasal bone is intact. There is some soft tissue swelling anterior to the left maxilla adjacent to the nose. I see no discrete fluid collection. IMPRESSION: No fracture. Left side soft tissue swelling anterior to the left maxilla adjacent to the nasal bone that is nonspecific. This could relate to cellulitis.
[2017-08-07 20:16] VITALS: BP 129/79; PULSE 98; RESP 16; TEMP 98
== END 2017-08-07 20:14 | disposition home or self-care (01) ==
LOC: EC 16:10
DX: L03.211 Cellulitis of face (principal); F41.9 Anxiety disorder, unspecified; F31.9 Bipolar disorder, unspecified; F43.10 Post-traumatic stress disorder, unspecified; F17.200 Nicotine dependence, unspecified, uncomplicated; Z81.8 Family history of other mental and behavioral disorders; Z79.899 Other long term (current) drug therapy; Z88.5 Allergy status to narcotic agent; Z88.8 Allergy status to other drugs, medicaments and biological substances
CPT/HCPCS: 99284 ×2; 96374 ×2; 96375 ×3; 96376 ×2; 96361 ×2; 36415; 80053; 85025; 80306; 70487; J2405; J1885; J1170; Q9967

== ENCOUNTER 2017-08-09 11:12 | Emergency (ER) | payer OTHER ==
[2017-08-09 11:28] VITALS: RESP 18
[2017-08-09] MEDS ORDERED: HYDROmorphone 1 MG/ML 1 ML SYRINGE IVP STA (12:20)
[2017-08-09] MEDS ORDERED: KETOROLAC 30 MG/ML 1 ML VIAL IVP STA (12:20)
[2017-08-09] MEDS ORDERED: ONDANSETRON 4 MG/2 ML VIAL IVP STA (12:20)
[2017-08-09] MEDS ORDERED: SODIUM CHLORIDE 0.9% 1,000 ML IV ONE (12:20)
[2017-08-09 13:11] LABS: Basophils # (A) 0.1 k/uL (0-0.2); Basophils % (A) 0 %; CH 31.3; CHCM 32.9; Eosinophils # (A) 0.2 k/uL (0-0.7); Eosinophils % (A) 2 %; HDW 2.32; HGB 14.2 gm/dL (11.4-16.0); Luc # (Auto) 0.16; Luc % (Auto) 1; Lymphocytes % (A) 17 %; MCH 31.4 pg (25.0-35.0); MCHC 32.9 g/dL (31.0-37.0); MCV 95.5 fL (80.0-100.0); Mean Platelet Volume 6.8; Monocytes # (A) 0.7 k/uL (0-1.0); Monocytes % (A) 6 %; Neutrophils # (A) 8.5 k/uL (1.3-7.7); Neutrophils % (A) 73 %; RDW 12.2 % (11.5-15.5); WBC 11.6 k/uL (3.8-10.6); WBC (Perox) 11.65
[2017-08-09 13:17] LABS: Anion Gap 10 mmol/L; Blood Urea Nitrogen 4 mg/dL (7-17); Calcium 9.8 mg/dL (8.4-10.2); Carbon Dioxide 23 mmol/L (22-30); Chloride 108 mmol/L (98-107); Glucose 93 mg/dL (74-99); Non-African American GFR(MDRD) >60 (>60 ml/min/1.73 sqM); Potassium 4.6 mmol/L (3.5-5.1); Sodium 141 mmol/L (137-145)
[2017-08-09] MEDS ORDERED: HYDROmorphone 1 MG/ML 1 ML SYRINGE IM STA (13:44)
[2017-08-09] MEDS ORDERED: HYDROmorphone 0.5 MG/0.5 ML SYRINGE IM STA (13:46)
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
[2017-08-09 14:13] VITALS: BP 134/81; PULSE 89; TEMP 98.2
--- NOTE | 2017-08-11 07:48 | CDI ---
Documentation Clarification OP Dear David Stevenson A, DO Please do addendum to ED report that provides Need ER H &P,Physical Exam Thank you, Ana Luisa Stre[employer] If you have any questions, please contact [employer] at [phone] [facility]
== END 2017-08-09 14:15 | disposition home or self-care (01) ==
LOC: EC 11:12
DX: R51 Headache (principal); F32.9 Major depressive disorder, single episode, unspecified; F17.200 Nicotine dependence, unspecified, uncomplicated; Z87.42 Personal history of other diseases of the female genital tract; Z88.5 Allergy status to narcotic agent; Z88.8 Allergy status to other drugs, medicaments and biological substances; Z79.899 Other long term (current) drug therapy
CPT/HCPCS: 99283; 96374; 96375 ×2; 96361; 96372; 36415; 80048; 83605; 85025; J2405; J1885; J1170 ×2

== ENCOUNTER 2017-08-14 12:32 | Observation (INO) | payer OTHER ==
[2017-08-14] MEDS ORDERED: ONDANSETRON 4 MG/2 ML VIAL IVP STA (13:11)
[2017-08-14] MEDS ORDERED: SODIUM CHLORIDE 0.9% 1,000 ML IV STA ×2 (13:11)
[2017-08-14] MEDS ORDERED: RX INFO: IV CONTRAST WAS GIVEN 1 EACH MISC MISCELLANE PRN (13:11)
[2017-08-14] MEDS ORDERED: HYDROmorphone 1 MG/ML 1 ML SYRINGE IVP STA (13:12)
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
[2017-08-14 13:40] LABS: Basophils # (A) 0.1 k/uL (0-0.2); Basophils % (A) 1 %; CH 32.4; CHCM 33.1; Eosinophils # (A) 0.3 k/uL (0-0.7); Eosinophils % (A) 4 %; HCT 35.4 % (34.0-46.0); HDW 2.42; HGB 11.4 gm/dL (11.4-16.0); Luc # (Auto) 0.23; Luc % (Auto) 3; Lymphocytes # (A) 1.8 k/uL (1.0-4.8); Lymphocytes % (A) 24 %; MCH 31.8 pg (25.0-35.0); MCHC 32.2 g/dL (31.0-37.0); MCV 98.6 fL (80.0-100.0); Mean Platelet Volume 7.7; Monocytes # (A) 0.5 k/uL (0-1.0); Monocytes % (A) 7 %; Neutrophils # (A) 4.6 k/uL (1.3-7.7); Neutrophils % (A) 62 %; RDW 13.5 % (11.5-15.5); WBC 7.4 k/uL (3.8-10.6); WBC (Perox) 7.74
[2017-08-14 13:46] LABS: Appearance,Urine Cloudy (Clear); Bacteria,Urine Rare /hpf; Bilirubin,Urine 1+ (Negative); Glucose,Urine (UA) Negative (Negative); Ketones,Urine Negative (Negative); Leukocyte Esterase,Urine Moderate (Negative); Nitrite,Urine Positive (Negative); PH, Urine 6.5 (5.0-8.0); Particle Count 2761; Protein,Urine 1+ (Negative); RBC,Urine >182 /hpf (0-5); Specific Gravity,Urine 1.015 (1.001-1.035); Squamous Epithelial Cell,Urine 3 /hpf (0-4); UA Billing (MACRO vs. MICRO) MICRO; WBC,Urine 40 /hpf (0-5)
[2017-08-14 13:47] LABS: INR 0.9 (<1.2); Partial Thromboplastin Time 27.6 sec (22.0-30.0); Prothrombin Time 9.6 sec (9.0-12.0)
[2017-08-14 13:52] LABS: ALT 59 U/L (9-52); AST 47 U/L (14-36); Alkaline Phosphatase 94 U/L (38-126); Amylase <30 U/L (30-110); Anion Gap 7 mmol/L; Blood Urea Nitrogen 5 mg/dL (7-17); Calcium 8.1 mg/dL (8.4-10.2); Carbon Dioxide 23 mmol/L (22-30); Chloride 111 mmol/L (98-107); Glucose 101 mg/dL (74-99); Non-African American GFR(MDRD) >60 (>60 ml/min/1.73 sqM); Sodium 141 mmol/L (137-145); Total Bilirubin 0.2 mg/dL (0.2-1.3); Total Protein 5.7 g/dL (6.3-8.2)
[2017-08-14] MEDS ORDERED: KETOROLAC 30 MG/ML 1 ML VIAL IVP STA (14:31)
--- NOTE | 2017-08-14 14:42 | CT ---
EXAMINATION TYPE: CT abdomen pelvis w con DATE OF EXAM: 08/14/2017 COMPARISON: 06/29/2015 HISTORY: 27-year-old female with right-sided abdominal pain for 2 days/diarrhea. TECHNIQUE: Contiguous axial scanning of the abdomen and pelvis following administration of 100 ml Omn ipaque 300 IV contrast. Delayed images through the kidneys and coronal/sagittal reconstructions perf ormed. CT DLP: 635 mGycm Automated exposure control for dose reduction was used. FINDINGS: The heart is normal size without pericardial effusion. Some strandy atelectasis in the lung bases wit hout pleural effusion. Small hiatal hernia. Liver measures at the upper limits of normal in size at 18.1 cm craniocaudal. No focal lesion or bili janice ductal dilatation. Portal venous system is patent. Gallbladder, adrenal glands, right kidney, spleen with hilar splenule, and pancreas show no gross abn ormal body. There is a diverticulum of the third portion of the duodenum noted. Redemonstrated nonobstructive 3 mm calculus in the mid left kidney. Symmetric uptake and excretion of contrast from both kidneys. Scattered nonenlarged mesenteric lymph nodes are demonstrated. No dilated small bowel, free fluid, or free air. Normal appendix visualized, refer to axial image 61. There is moderate to large stool burden without pericolonic inflammatory change. Bladder is urine distended. Uterus and ovaries are visualized. Follicular change is demonstrated on b oth sides. There may be trace right adnexal free fluid, likely physiologic. Bones: No osseous destructive process. IMPRESSION: 1. SMALL HIATAL HERNIA. 2. A 3 MM NONOBSTRUCTIVE LEFT RENAL CALCULUS. 3. NORMAL APPENDIX. 4. MODERATE TO LARGE STOOL BURDEN; QUERY CONSTIPATION. 5. FOLLICULAR CHANGE IN BOTH OVARIES.
[2017-08-14] MEDS ORDERED: ACETAMINOPHEN IV (For NPO) 1,000 MG in EMPTY BAG 1 BAG IVPB ONE (14:59)
[2017-08-14] MEDS ORDERED: MAGNESIUM CITRATE 296 ML BOTTLE PO ONE (14:59)
[2017-08-14] MEDS ORDERED: NALOXONE 0.4 MG/ML 1 ML VIAL IV PRN ×2 (15:25→16:09)
[2017-08-14] MEDS ORDERED: MELATONIN 3 MG TABLET PO PRN (16:09)
[2017-08-14] MEDS ORDERED: ACETAMINOPHEN TAB 325 MG TAB PO PRN (16:09)
[2017-08-14] MEDS ORDERED: CALCIUM CARBONATE 500 MG CHEWABLE PO PRN (16:09)
[2017-08-14] MEDS ORDERED: ONDANSETRON 4 MG/2 ML VIAL IVP PRN (16:09)
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
[2017-08-14] MEDS: ALPRAZolam 0.5 MG TAB PO PRN (17:58)
[2017-08-14] MEDS: HYDROmorphone 1 MG/ML 1 ML SYRINGE IV PRN (19:13)
[2017-08-14] MEDS: BUTALB/APAP/CAFF 50-325-40MG TAB PO PRN (19:17)
[2017-08-14] MEDS: SODIUM CHLORIDE 0.9% 1,000 ML IV SCH (19:35)
[2017-08-14] MEDS: NICOTINE 21MG/24HR PATCH TRANSDERM SCH (19:37)
[2017-08-14] MEDS: PHENAZOPYRIDINE 100 MG TAB PO SCH ×2 (19:39→20:46)
[2017-08-14] MEDS: LACTULOSE 20 GM/30 ML CUP PO SCH (19:40)
[2017-08-14] MEDS: TAMSULOSIN 0.4 MG CAP.ER.24H PO SCH (19:40)
[2017-08-14] MEDS: GABAPENTIN 400 MG CAP PO SCH (20:47)
[2017-08-14] MEDS: MIRTAZAPINE 45 MG TABLET PO SCH (20:47)
[2017-08-14] MEDS: FAMOTIDINE 20 MG TAB PO SCH (20:47)
[2017-08-14] MEDS: oxyCODONE-APAP 7.5-325MG 1 EACH TAB PO PRN (23:25)
[2017-08-15] MEDS: SODIUM CHLORIDE 0.9% 1,000 ML IV SCH ×3 (03:34→18:13)
[2017-08-15] MEDS: HYDROmorphone 1 MG/ML 1 ML SYRINGE IV PRN ×4 (03:40→19:10)
[2017-08-15] MEDS: oxyCODONE-APAP 7.5-325MG 1 EACH TAB PO PRN ×3 (06:19→18:06)
[2017-08-15] MEDS: ALPRAZolam 0.5 MG TAB PO PRN ×2 (06:19→18:17)
[2017-08-15] MEDS: BUTALB/APAP/CAFF 50-325-40MG TAB PO PRN ×3 (07:37→19:31)
[2017-08-15] MEDS: GABAPENTIN 400 MG CAP PO SCH ×3 (07:38→20:26)
[2017-08-15] MEDS: FAMOTIDINE 20 MG TAB PO SCH ×2 (07:38→20:26)
[2017-08-15] MEDS: ENOXAPARIN 40 MG/0.4 ML SYRINGE SQ SCH (07:38)
[2017-08-15] MEDS: METOPROLOL SUCCINATE (ER) 25 MG TAB.ER.24H PO SCH (07:40)
[2017-08-15] MEDS: VENLAFAXINE HCL ER 75 MG CAP PO SCH (07:41)
[2017-08-15] MEDS: NICOTINE 21MG/24HR PATCH TRANSDERM SCH (07:41)
[2017-08-15] MEDS: PHENAZOPYRIDINE 100 MG TAB PO SCH ×3 (07:41→20:26)
[2017-08-15] MEDS: LACTULOSE 20 GM/30 ML CUP PO SCH (07:49)
[2017-08-15] MEDS ORDERED: ACETAMINOPHEN IV (For NPO) 1,000 MG in EMPTY BAG 1 BAG IVPB ONE (10:52)
--- NOTE | 2017-08-15 11:01 | P.PN ---
Subjective Progress Note Date: 08/15/17 Principal diagnosis: abdominal pain Patient is a 27-year-old female with past medical history of recurrent nephrolithiasis requiring urethral stent 7 and Lithotrypsy X 4, heroin addiction which she states she has been sober for 8 months and is currently enrolled in the [facility] program, and endometriosis who presented to the emergency department with complaints of abdominal pain. In the emergency department she underwent an extensive evaluation. Her vital signs showed a tachycardia. Laboratory analysis was essentially within normal limits. She was given a dose of Dilaudid. She was given a dose of Rocephin when her UA did appear to be infected. She underwent a CT the abdomen and pelvis which did show a small left-sided nonobstructing nephrolithiasis and retained stool. She was admitted to the general medical floor for further monitoring and care. She was maintained on rocephin, dilaudid, toradol and pyridium. Patient s/e at bedside. Complains of abdominal pain that is severe in nature. Clutching her abdomen crying. She denies any chest pain or shortness of breath. She did have a bowel movement today and her lactulose. She complains of bilateral lower extremity swelling. She has no other complaints currently. Nurse did mention her complaint of itching she doesn't verify. She is asking for more Dilaudid, I refused this but did suggest a dose of IV Tylenol to see if that would help with her pain. I also reminded her that she has Toradol to take for pain. Objective - Vital Signs Vital signs: Vital Signs Temp 97.4 F L 08/15/17 08:23 Pulse 99 08/15/17 09:05 Resp 18 08/15/17 09:05 BP 123/78 08/15/17 08:23 Pulse Ox 95 08/15/17 08:23 Intake & Output 08/14/17 08/15/17 08/15/17 18:59 06:59 18:59 Intake Total 1790 Balance 1790 Weight 63.503 kg Intake: IV 1200 Sodium Chloride 0.9% 1, 1200 000 ml @ 150 mls/hr IV . Q6H40M INOCENCIO Rx#:[id number] Oral 590 Other: Voiding Method Toilet Toilet Toilet # Voids 2 # Bowel Movements 1 - Exam General: non toxic, mild distress, appears at stated age Derm: no rashes, no lesions Head: atraumatic, normocephalic, symmetric Eyes: EOMI, no lid lag, anicteric sclera ENT: no post nasal drip, no thrush Mouth: no lip lesion, mucus membranes moist Cardiovascular: S1S2 reg, no murmur, positive posterior tibial pulse bilateral, Lungs: CTA bilateral, no rhonchi, no rales , no accessory muscle use Abdominal: soft, tender to palpation right lower quadrant, no guarding, no appreciable organomegaly Ext: no gross muscle atrophy, no edema, no contractures Neuro: CN II-XI grossly intact, no focal neuro deficits Psych: Alert, oriented, anxious, crying, tearful - Labs CBC & Chem 7: 08/14/17 13:08 08/14/17 13:08 Labs: Abnormal Lab Results - Last 24 Hours (Table) 08/14/17 08/14/17 08/14/17 Range/Units 13: 13:08 13:08 RBC 3.60 L (3.80-5.40) m/uL Chloride 111 H (98-107) mmol/L BUN 5 L (7-17) mg/dL Glucose 101 H (74-99) mg/dL Calcium 8.1 L (8.4-10.2) mg/dL AST 47 H (14-36) U/L ALT 59 H (9-52) U/L Total Protein 5.7 L (6.3-8.2) g/dL Albumin 3.1 L (3.5-5.0) g/dL Amylase <30 L (30-110) U/L Urine Appearance Cloudy H (Clear) Urine Protein 1+ H (Negative) Urine Blood Large H (Negative) Urine Nitrite Positive H (Negative) Urine Bilirubin 1+ H (Negative) Ur Leukocyte Esterase Moderate H (Negative) Urine RBC >182 H (0-5) /hpf Urine WBC 40 H (0-5) /hpf Urine Bacteria Rare H (None) /hpf Microbiology - Last 24 Hours (Table) 08/14/17 13:08 Urine Culture - Preliminary Urine,Voided Assessment and Plan Plan: Urinary tract infection, failed outpatient treatment -Rocephin -Urine culture -IV fluids left sided nephrolithiasis -Flomax, IV fluids, Pyridium -Strain urine -If pain does not improve consider urology consult -Toradol for pain, Dilaudid for breakthrough, chronically on Percocet and Fioricet. Added IV acetominophen Chronic pain -Continue home Percocet and Fioricet I'm not sure who is prescribing these for her. Constipation -Patient denies this but seen on CT scan - She refused magnesium citrate in the ER - continue lactulose Anxiety/depression -Continue home Xanax and Effexor DVT prophylaxis: Lovenox Discussed with: Patient,Nurse Anticipated discharge: [address]: Home A total of 25 minutes was spent on the care of this complex patient more than 50 % of the time was spent in counseling and care coordination.
[2017-08-15 11:16] LABS: CH 31.6; CHCM 31.1; HCT 35.1 % (34.0-46.0); HDW 2.46; HGB 11.1 gm/dL (11.4-16.0); Hypochromasia Slight; MCH 32.2 pg (25.0-35.0); MCHC 31.6 g/dL (31.0-37.0); MCV 102.1 fL (80.0-100.0); Macrocytosis Slight; Mean Platelet Volume 7.7; RBC 3.44 m/uL (3.80-5.40); RDW 13.7 % (11.5-15.5); WBC 6.7 k/uL (3.8-10.6)
[2017-08-15] MEDS: diphenhydrAMINE 25 MG CAP PO PRN ×2 (11:25→17:23)
[2017-08-15 11:43] LABS: Anion Gap 11 mmol/L; Blood Urea Nitrogen 4 mg/dL (7-17); Calcium 8.7 mg/dL (8.4-10.2); Carbon Dioxide 18 mmol/L (22-30); Chloride 112 mmol/L (98-107); Glucose 113 mg/dL (74-99); Non-African American GFR(MDRD) >60 (>60 ml/min/1.73 sqM); Potassium 4.4 mmol/L (3.5-5.1); Sodium 141 mmol/L (137-145)
[2017-08-15] MEDS ORDERED: LACTULOSE 20 GM/30 ML CUP PO ONE (16:00)
[2017-08-15] MEDS: TAMSULOSIN 0.4 MG CAP.ER.24H PO SCH (17:18)
[2017-08-15] MEDS: KETOROLAC 30 MG/ML 1 ML VIAL IVP PRN (17:33)
[2017-08-15] MEDS: MIRTAZAPINE 45 MG TABLET PO SCH (20:26)
[2017-08-16] MEDS: HYDROmorphone 1 MG/ML 1 ML SYRINGE IV PRN ×2 (01:17→07:57)
[2017-08-16] MEDS: oxyCODONE-APAP 7.5-325MG 1 EACH TAB PO PRN ×2 (02:03→09:31)
[2017-08-16] MEDS: diphenhydrAMINE 25 MG CAP PO PRN ×2 (02:03→08:13)
[2017-08-16] MEDS: BUTALB/APAP/CAFF 50-325-40MG TAB PO PRN ×2 (02:03→08:13)
[2017-08-16] MEDS: SODIUM CHLORIDE 0.9% 1,000 ML IV SCH ×3 (02:24→09:31)
[2017-08-16] MEDS: KETOROLAC 30 MG/ML 1 ML VIAL IVP PRN (04:34)
[2017-08-16 07:07] LABS: CH 30.7; CHCM 31.5; HCT 33.4 % (34.0-46.0); HDW 2.46; HGB 10.3 gm/dL (11.4-16.0); MCH 30.4 pg (25.0-35.0); MCV 98.2 fL (80.0-100.0); Mean Platelet Volume 7.1; RDW 12.4 % (11.5-15.5); WBC 5.6 k/uL (3.8-10.6)
[2017-08-16 07:10] LABS: Anion Gap 8 mmol/L; Blood Urea Nitrogen 4 mg/dL (7-17); Calcium 8.8 mg/dL (8.4-10.2); Carbon Dioxide 23 mmol/L (22-30); Chloride 111 mmol/L (98-107); Glucose 91 mg/dL (74-99); Non-African American GFR(MDRD) >60 (>60 ml/min/1.73 sqM); Potassium 4.4 mmol/L (3.5-5.1); Sodium 142 mmol/L (137-145)
[2017-08-16] MEDS: ALPRAZolam 0.5 MG TAB PO PRN (07:58)
[2017-08-16] MEDS: FAMOTIDINE 20 MG TAB PO SCH (07:59)
[2017-08-16] MEDS: ENOXAPARIN 40 MG/0.4 ML SYRINGE SQ SCH (07:59)
[2017-08-16] MEDS: PHENAZOPYRIDINE 100 MG TAB PO SCH (08:00)
[2017-08-16] MEDS: GABAPENTIN 400 MG CAP PO SCH (08:00)
[2017-08-16] MEDS: NICOTINE 21MG/24HR PATCH TRANSDERM SCH (08:00)
[2017-08-16] MEDS: LACTULOSE 20 GM/30 ML CUP PO SCH (08:00)
[2017-08-16] MEDS: VENLAFAXINE HCL ER 75 MG CAP PO SCH (08:01)
[2017-08-16] MEDS: METOPROLOL SUCCINATE (ER) 25 MG TAB.ER.24H PO SCH (08:02)
[2017-08-16 08:10] VITALS: BP 118/77; PULSE 87; RESP 18; TEMP 97.9
--- NOTE | 2017-08-16 15:09 | P.DS ---
Providers Date of admission: 08/14/17 15:26 Expected date of discharge: 08/16/17 Attending physician: Kevyn Souza MD Primary care physician: Marysol Malcolm - Discharge Diagnosis(es) (1) UTI (urinary tract infection) Status: Acute (2) Constipation Status: Acute (3) Nephrolithiasis Status: Acute (4) Facial cellulitis Status: Acute (5) Abdominal pain Status: Chronic Priority: Medium (6) Acute anxiety Status: Acute Hospital Course: Patient is a 27-year-old female with past medical history of recurrent nephrolithiasis requiring urethral stent 7 and Lithotrypsy X 4, heroin addiction which she states she has been sober for 8 months and is currently enrolled in the [facility] program, and endometriosis who presented to the emergency department with complaints of abdominal pain. In the emergency department she underwent an extensive evaluation. Her vital signs showed a tachycardia. Laboratory analysis was essentially within normal limits. She was given a dose of Dilaudid. She was given a dose of Rocephin when her UA did appear to be infected. She underwent a CT the abdomen and pelvis which did show a small left-sided nonobstructing nephrolithiasis and retained stool. She was admitted to the general medical floor for further monitoring and care. She was maintained on rocephin, dilaudid, toradol and pyridium. The morning of 08/16 her pain had decreased significantly. She had also had several bowel movements with lactulose was seem to be working well. Her urine culture came back negative-indicating that the Cipro was working appropriately. Determined stable for discharge home to complete her course of Cipro, Clinda, and Augmentin for her urinary tract infection prior facial cellulitis. Initially I had discharged her home with Toradol for pain control. Her mother called the concern that that would not be adequate pain control for her tooth abscess and facial cellulitis. She states the Percocet 7.5 mg has not been working for her at home. We discussed the patient's history of heroin abuse. Her mother states that she controls all the patient's pain medications at home. We have discussed that she is likely to relapse after having been gave pain medicines, mother is aware of this. I have agreed to give her enough Percocet 10 mg to last her through Thursday when she is seen by her family physician, as I do believe she has pain associated with her facial cellulitis. Her mother assures me that she will control these medications. She also is frustrated that she has not been able to find an oral surgeon that accepts there insurance. After doing some research I provided them with the emergency number, regular number, and oral surgery number associated with the [facility] for follow-up. Patient seen and examined at bedside. Pain better controlled. Having bowel movements. Informed that her urine culture is negative. Vital signs reviewed and stable. General: non toxic, no distress, appears at stated age Derm: no rashes, no lesions Head: atraumatic, normocephalic, mild swelling of left face Eyes: EOMI, no lid lag, anicteric sclera ENT: no post nasal drip, no thrush Mouth: no lip lesion, mucus membranes moist Cardiovascular: S1S2 reg, no murmur, positive posterior tibial pulse bilateral, Lungs: CTA bilateral, no rhonchi, no rales , no accessory muscle use Abdominal: soft, tender to palpation right lower quadrant, no guarding, no appreciable organomegaly Ext: no gross muscle atrophy, no edema, no contractures Neuro: CN II-XI grossly intact, no focal neuro deficits Psych: Alert, oriented, appropriate affect A total of 35 minutes of time were spent preparing this complex discharge summary . Patient Condition at Discharge: Stable Plan - Discharge Summary New Discharge Prescriptions: New Ketorolac [Toradol] 10 mg PO Q6HR #15 tab Lactulose [Cephulac] 20 gm PO DAILY #4 dose Phenazopyridine [Pyridium] 100 mg PO TID #9 tab Tamsulosin [Flomax] 0.4 mg PO PC-SUPPER #15 cap oxyCODONE-APAP 10-325MG [Percocet 10-325 mg] 1 tab PO Q8HR PRN #18 tab PRN Reason: Pain Continue Venlafaxine HCl ER [Effexor XR] 225 mg PO DAILY #90 cap Mirtazapine [Remeron] 45 mg PO HS Metoprolol Succinate [Toprol XL] 25 mg PO DAILY ALPRAZolam [Xanax] 1 mg PO BID PRN PRN Reason: Anxiety Butalb/Acetaminophen/Caffeine [Fioricet 50-300-40 mg Capsule] 1 - 2 cap PO Q6H PRN PRN Reason: Migraine Headache Ciprofloxacin HCl [Cipro] 500 mg PO Q12HR Gabapentin [Neurontin] 800 mg PO TID hydrOXYzine PAMOATE [Vistaril] 25 - 50 mg PO TID PRN PRN Reason: Anxiety oxyCODONE-APAP 7.5-325MG [Percocet 7.5-325 mg] 1 tab PO Q6HR PRN PRN Reason: Pain Discharge Medication List Venlafaxine HCl ER [Effexor XR] 225 mg PO DAILY #90 cap 03/27/17 [Rx] ALPRAZolam [Xanax] 1 mg PO BID PRN 08/07/17 [History] Metoprolol Succinate [Toprol XL] 25 mg PO DAILY 08/07/17 [History] Mirtazapine [Remeron] 45 mg PO HS 08/07/17 [History] Butalb/Acetaminophen/Caffeine [Fioricet 50-300-40 mg Capsule] 1 - 2 cap PO Q6H PRN 08/14/17 [History] Ciprofloxacin HCl [Cipro] 500 mg PO Q12HR 08/14/17 [History] Gabapentin [Neurontin] 800 mg PO TID 08/14/17 [History] hydrOXYzine PAMOATE [Vistaril] 25 - 50 mg PO TID PRN 08/14/17 [History] oxyCODONE-APAP 7.5-325MG [Percocet 7.5-325 mg] 1 tab PO Q6HR PRN 08/14/17 [ History] Ketorolac [Toradol] 10 mg PO Q6HR #15 tab 08/16/17 [Rx] Lactulose [Cephulac] 20 gm PO DAILY #4 dose 08/16/17 [Rx] Phenazopyridine [Pyridium] 100 mg PO TID #9 tab 08/16/17 [Rx] Tamsulosin [Flomax] 0.4 mg PO PC-SUPPER #15 cap 08/16/17 [Rx] oxyCODONE-APAP 10-325MG [Percocet 10-325 mg] 1 tab PO Q8HR PRN #18 tab 08/16/17 [Rx] Follow up Appointment(s)/Referral(s): Marysol Malcolm MD [Primary Care Provider] - 1-2 days (Patient to call Dr. Malcolm's office Thursday morning to schedule follow up appointment. The office is closed at time of discharge. ) Patient Instructions/Handouts: Phenazopyridine (By mouth), Oxycodone/ Acetaminophen (By mouth), Ketorolac (By mouth), Lactulose (By mouth), Tamsulosin (By mouth), Urinary Tract Infection in Women (DC) Activity/Diet/Wound Care/Special Instructions: regular diet, avoid acid containing foods [facility] does have an emergency walk in clinic Hours doors open at 0730 CLinic starts seeing patients at 9 am Regular hours [phone] [address] [facility], [address] Oral surgery branch (website states will need referral from her dentist) [phone] M-F 9-12 and 1-6 pm Please complete your course of cipro, augmentin, and clindamycin- all are appropriate abx Discharge Disposition: HOME SELF-CARE
== END 2017-08-16 11:40 | disposition home or self-care (01) ==
LOC: EC 12:32 → INTOOBSV 15:26 → 5MS5E 15:26
PROVIDERS: ADMIT Family Medicine; ATTEND Family Medicine
DX: N39.0 Urinary tract infection, site not specified (principal); F11.20 Opioid dependence, uncomplicated; L03.211 Cellulitis of face; K04.7 Periapical abscess without sinus; F41.9 Anxiety disorder, unspecified; F31.9 Bipolar disorder, unspecified; F43.10 Post-traumatic stress disorder, unspecified; N20.0 Calculus of kidney; K59.00 Constipation, unspecified; F17.200 Nicotine dependence, unspecified, uncomplicated; N80.9 Endometriosis, unspecified; G89.29 Other chronic pain; Z76.5 Malingerer [conscious simulation]; Z79.899 Other long term (current) drug therapy; Z88.5 Allergy status to narcotic agent; Z88.8 Allergy status to other drugs, medicaments and biological substances; R11.2 Nausea with vomiting, unspecified; R19.7 Diarrhea, unspecified; Z87.442 Personal history of urinary calculi
CPT/HCPCS: 96376 ×3; 96361 ×3; 96366 ×2; 96367; 96372; 96365; 96375; 99285; 36415; 86900; 86901; 80053; 80048 ×2; 82150; 83605; 83690; 85025; 85027 ×2; 85610; 85730; 86850; 81001; 81025; 87040; 80306; 87086; 74177; G0378 ×3; S4990 ×3; J2405 ×2; J1650 ×2; J0696 ×3; J1885 ×3; J1170 ×3; Q9967; J0131; 96374

== ENCOUNTER 2017-08-29 19:48 | Inpatient (IN) | payer MEDICAID, OTHER ==
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
[2017-08-29] MEDS ORDERED: oxyCODONE-APAP 5-325MG 1 EACH TAB PO STA (21:58)
[2017-08-30] MEDS ORDERED: ZIPRASIDONE 20 MG VIAL IM STA (00:38)
[2017-08-30 00:39] LABS: Basophils # (A) 0.1 k/uL (0-0.2); Basophils % (A) 1 %; CH 31.2; CHCM 33.1; Eosinophils # (A) 0.3 k/uL (0-0.7); Eosinophils % (A) 4 %; HCT 40.9 % (34.0-46.0); HDW 2.36; Luc # (Auto) 0.15; Luc % (Auto) 2; Lymphocytes # (A) 2.5 k/uL (1.0-4.8); Lymphocytes % (A) 34 %; MCH 31.3 pg (25.0-35.0); MCHC 33.1 g/dL (31.0-37.0); MCV 94.6 fL (80.0-100.0); Mean Platelet Volume 6.9; Monocytes # (A) 0.5 k/uL (0-1.0); Monocytes % (A) 7 %; Neutrophils # (A) 3.7 k/uL (1.3-7.7); Neutrophils % (A) 52 %; RBC 4.32 m/uL (3.80-5.40); RDW 11.7 % (11.5-15.5); WBC 7.2 k/uL (3.8-10.6); WBC (Perox) 7.65
[2017-08-30 00:41] LABS: HGB 13.5 gm/dL (11.4-16.0)
[2017-08-30 00:48] LABS: ALT 40 U/L (9-52); AST 24 U/L (14-36); Alkaline Phosphatase 83 U/L (38-126); Anion Gap 8 mmol/L; Blood Urea Nitrogen 7 mg/dL (7-17); Calcium 9.3 mg/dL (8.4-10.2); Carbon Dioxide 26 mmol/L (22-30); Chloride 105 mmol/L (98-107); Glucose 92 mg/dL (74-99); Non-African American GFR(MDRD) >60 (>60 ml/min/1.73 sqM); Potassium 4.2 mmol/L (3.5-5.1); Sodium 139 mmol/L (137-145); Total Bilirubin 0.3 mg/dL (0.2-1.3)
[2017-08-30] MEDS ORDERED: MAG HYDROX/AL HYDROX/SIMETH 30 ML CUP PO PRN (07:11)
[2017-08-30] MEDS ORDERED: ACETAMINOPHEN TAB 325 MG TAB PO PRN (07:11)
[2017-08-30] MEDS ORDERED: MAGNESIUM HYDROXIDE 2,400 MG/10 ML CUP PO PRN (07:11)
[2017-08-30 09:03] VITALS: BMI 29.8
[2017-08-30] MEDS: LACTULOSE 20 GM/30 ML CUP PO SCH (09:50)
[2017-08-30] MEDS: GABAPENTIN 400 MG CAP PO SCH ×3 (09:50→20:55)
[2017-08-30] MEDS: VENLAFAXINE HCL ER 75 MG CAP PO SCH (09:50)
[2017-08-30] MEDS: METOPROLOL SUCCINATE (ER) 25 MG TAB.ER.24H PO SCH (09:50)
[2017-08-30] MEDS: NICOTINE 14MG/24HR PATCH TRANSDERM SCH (09:50)
[2017-08-30] MEDS: LORazepam 1 MG TAB PO PRN ×2 (09:53→17:48)
[2017-08-30] MEDS: HYDROcodone/APAP 10-325MG 1 EACH TAB PO PRN ×2 (09:54→17:47)
[2017-08-30] MEDS: DIPHENOX-ATROP 2.5-0.025 MG 1 EACH TAB PO PRN ×2 (09:55→20:56)
[2017-08-30] MEDS: hydrOXYzine PAMOATE 25 MG CAP PO PRN ×2 (14:22→20:57)
[2017-08-30] MEDS: BUTALB/APAP/CAFF 50-325-40MG TAB PO PRN ×2 (14:22→20:57)
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
[2017-08-30] MEDS: TAMSULOSIN 0.4 MG CAP.ER.24H PO SCH (18:19)
[2017-08-30] MEDS: chlorproMAZINE 25 MG TAB PO SCH ×2 (18:19→20:55)
[2017-08-30] MEDS ORDERED: MIRTAZAPINE 45 MG TABLET PO SCH (21:00)
[2017-08-30] MEDS: IBUPROFEN 600 MG TAB PO SCH (21:50)
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
[2017-08-31] MEDS: HYDROcodone/APAP 10-325MG 1 EACH TAB PO PRN (05:43)
[2017-08-31] MEDS: LORazepam 1 MG TAB PO PRN (05:45)
[2017-08-31 06:14] LABS: Appearance,Urine Cloudy (Clear); Bacteria,Urine Few /hpf; Bilirubin,Urine Negative (Negative); Glucose,Urine (UA) Negative (Negative); Ketones,Urine Negative (Negative); Leukocyte Esterase,Urine Trace (Negative); Nitrite,Urine Negative (Negative); Particle Count 2205; Protein,Urine Negative (Negative); RBC,Urine <1 /hpf (0-5); Specific Gravity,Urine 1.005 (1.001-1.035); Squamous Epithelial Cell,Urine 3 /hpf (0-4); UA Billing (MACRO vs. MICRO) MICRO; Urobilinogen,Urine <2.0 mg/dL (<2.0); WBC,Urine 3 /hpf (0-5)
[2017-08-31] MEDS: BUTALB/APAP/CAFF 50-325-40MG TAB PO PRN ×3 (07:10→19:29)
[2017-08-31] MEDS: NICOTINE 14MG/24HR PATCH TRANSDERM SCH (09:28)
[2017-08-31] MEDS: IBUPROFEN 600 MG TAB PO SCH ×3 (09:29→22:22)
[2017-08-31] MEDS: chlorproMAZINE 25 MG TAB PO SCH (09:29)
[2017-08-31] MEDS: GABAPENTIN 400 MG CAP PO SCH ×3 (09:29→20:03)
[2017-08-31] MEDS: LACTULOSE 20 GM/30 ML CUP PO SCH (09:30)
[2017-08-31] MEDS: METOPROLOL SUCCINATE (ER) 25 MG TAB.ER.24H PO SCH (09:31)
[2017-08-31] MEDS: VENLAFAXINE HCL ER 75 MG CAP PO SCH (09:31)
[2017-08-31] MEDS: hydrOXYzine PAMOATE 25 MG CAP PO PRN (09:31)
[2017-08-31] MEDS: DIPHENOX-ATROP 2.5-0.025 MG 1 EACH TAB PO PRN ×2 (09:31→19:30)
--- NOTE | 2017-08-31 10:28 | P.PN ---
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 She states that she doesn't want to live anymore and states she would kill herself now if it was possible. She has a diagnosed bipolar 2 disorder history of PTSD and borderline personality disorder traits. This occurs also in the context of history of opiate use disorder. She is currently prescribed opiates by her primary care physician as well as Xanax and Fioricet. She states the opiates are for nephrolithiasis. She reports she was recently hospitalized for nephrolithiasis and pain control. We reviewed her presenting symptoms and medication options. She feels that the Effexor XR has provided benefit. She doesn't feel that the Remeron has helped much. We discussed the need for us to discontinue the Thorazine and she is agreeable. We reviewed the possibility of augmenting with Abilify versus Seroquel. Mental status exam: The patient is an overweight female appearing her stated age. She seated calmly. Eye contact is appropriate. She is tearful throughout the session and she reports having suicidal ideation with hopelessness thinking. She reports no homicidal ideation she endorses no auditory or visual hallucinations or specific delusions and there is no observable evidence of psychosis. She does not appear hypomanic or manic at this time. She demonstrates no tangential thinking loose associations or flight of ideas. She demonstrates no verbal or physical aggressiveness she demonstrates no abnormal involuntary movements. She is oriented to person place and date. She describes having anxiety throughout the day which is distressing. Plan: We reviewed her psychotropic medications. Our plan is to discontinue the Thorazine we will start Seroquel 100 mg at bedtime with a plan of titrating further. We discussed that this will act as a mood stabilizer help her depression and possibly as an off label use reduce anxiety. She will continue on the Effexor XR is written. We will taper down the Remeron to discontinue it. Ativan will be discontinued Klonopin 0.5 mg up to twice daily we'll be available if needed. We discussed a plan of trying to taper off of benzodiazepines as well as the Fioricet. We will monitor her for safety and encourage her participation in the milieu.
[2017-08-31] MEDS: oxyCODONE-APAP 7.5-325MG 1 EACH TAB PO PRN ×2 (10:35→17:49)
[2017-08-31] MEDS: clonazePAM 0.5 MG TAB PO PRN ×2 (10:35→17:52)
[2017-08-31] MEDS: TAMSULOSIN 0.4 MG CAP.ER.24H PO SCH (17:47)
[2017-08-31] MEDS: QUEtiapine 100 MG TAB PO SCH (20:03)
[2017-08-31] MEDS: DOCUSATE 100 MG CAP PO SCH (20:03)
[2017-08-31] MEDS ORDERED: OLANZapine ODT 10 MG TAB PO STA (20:04)
[2017-08-31] MEDS ORDERED: MIRTAZAPINE 15 MG TAB PO SCH (21:00)
--- NOTE | 2017-09-01 08:38 | P.PN ---
Progress Note - Text Interval history: The patient is found in the hallway she follows me to an interview room. She reports her mood continues to be depressed. She states that she had an anxiety attack yesterday after speaking to family via phone. She states she was able to speak with nursing for over an hour yesterday which helped and she plans on employing distraction techniques next time. We discussed her medications. We plan to taper off of the Remeron we will increase the Seroquel. She reports sleeping better last night staff recorded 7 hours. She reports making an effort to attend groups. Mental status exam: The patient is alert she seated calmly in her chair. Eye contact is appropriate. Speech is fluent and spontaneous nonpressured. She reports a depressed mood with hopelessness thoughts she has continued thoughts of . No homicidal ideation intent or plan. She is endorsing no auditory or visual hallucinations or specific delusions. She does not appear hypomanic or manic. Affect is dysphoric. Insight and judgment limited. She demonstrates no verbal or physical aggressiveness. She demonstrates no abnormal involuntary movements. Plan: The patient requires continued psychiatric hospitalization for her ongoing hopelessness thinking and suicidal thoughts. We will reduce the Remeron to 15 mg at bedtime as we plan to discontinue this medication and tapered fashion. We will increase his Seroquel to 25 mg twice daily and 100 mg at bedtime. Vital signs reviewed. We will monitor her for safety and encourage her participation in the milieu.
[2017-09-01] MEDS: NICOTINE 14MG/24HR PATCH TRANSDERM SCH (08:42)
[2017-09-01] MEDS: METOPROLOL SUCCINATE (ER) 25 MG TAB.ER.24H PO SCH (08:43)
[2017-09-01] MEDS: IBUPROFEN 600 MG TAB PO SCH ×3 (08:43→23:18)
[2017-09-01] MEDS: clonazePAM 0.5 MG TAB PO PRN ×2 (08:43→20:46)
[2017-09-01] MEDS: GABAPENTIN 400 MG CAP PO SCH ×3 (08:43→20:51)
[2017-09-01] MEDS: VENLAFAXINE HCL ER 75 MG CAP PO SCH (08:43)
[2017-09-01] MEDS: QUEtiapine 25 MG TAB PO SCH ×2 (08:43→11:57)
[2017-09-01] MEDS: DIPHENOX-ATROP 2.5-0.025 MG 1 EACH TAB PO PRN (08:45)
[2017-09-01] MEDS: oxyCODONE-APAP 7.5-325MG 1 EACH TAB PO PRN ×2 (08:45→15:57)
[2017-09-01] MEDS: BUTALB/APAP/CAFF 50-325-40MG TAB PO PRN ×2 (10:31→15:59)
[2017-09-01] MEDS: hydrOXYzine PAMOATE 25 MG CAP PO PRN ×2 (12:29→18:46)
[2017-09-01] MEDS: TAMSULOSIN 0.4 MG CAP.ER.24H PO SCH (20:43)
[2017-09-01] MEDS: DOCUSATE 100 MG CAP PO SCH (20:43)
[2017-09-01] MEDS: QUEtiapine 100 MG TAB PO SCH (20:51)
[2017-09-01] MEDS ORDERED: MIRTAZAPINE 15 MG TAB PO SCH (21:00)
[2017-09-02] MEDS: oxyCODONE-APAP 7.5-325MG 1 EACH TAB PO PRN ×4 (01:08→23:17)
[2017-09-02] MEDS: BUTALB/APAP/CAFF 50-325-40MG TAB PO PRN ×4 (01:08→21:24)
[2017-09-02] MEDS: IBUPROFEN 600 MG TAB PO SCH ×3 (08:04→21:22)
[2017-09-02] MEDS: GABAPENTIN 400 MG CAP PO SCH ×3 (08:04→21:22)
[2017-09-02] MEDS: QUEtiapine 25 MG TAB PO SCH (08:04)
[2017-09-02] MEDS: VENLAFAXINE HCL ER 75 MG CAP PO SCH (08:04)
[2017-09-02] MEDS: NICOTINE 14MG/24HR PATCH TRANSDERM SCH (08:04)
[2017-09-02] MEDS: METOPROLOL SUCCINATE (ER) 25 MG TAB.ER.24H PO SCH (08:06)
[2017-09-02] MEDS: clonazePAM 0.5 MG TAB PO PRN ×2 (08:09→20:02)
--- NOTE | 2017-09-02 09:54 | P.PN ---
Progress Note - Text Interval history: The patient is found in the front she follows me to an interview room. She reports having difficulty sleeping last night however she did sleep during the day. She feels overwhelmed with her level of anxiety. She states she has intense cravings to leave here and use heroin. She states she's having great difficulty adjusting to feeling emotions again whereas when she used heroin she felt nothing. We reviewed her current medications. We discussed alternatives to her current medications. She reports intermittently attending groups. She describes mood as being sad she states that she had suicidal ideation as recently as yesterday. Mental status exam: The patient is an overweight female she endorses a sad depressed mood with continued hopelessness thinking and suicidal thoughts. She is tearful during the session. She is reporting no homicidal ideation. She endorses no auditory or visual hallucinations or specific delusions. There is no observable evidence of psychosis. She maintains a dysphoric tearful affect. Insight and judgment limited. She is oriented to person place and date. She demonstrates no verbal or physical aggressiveness. She emphasizes feelings of anxiety that are significant throughout the day. Plan: The patient will continue on the Seroquel, I will increase the doses to 50 mg in the morning 50 mg at noon and 150 mg at bedtime. The Remeron will be eliminated. We discussed a plan of tapering off of Klonopin. Thursday we plan to discontinue Klonopin completely. Vistaril will be discontinued as she feels a provides no benefit. She is encouraged to stay awake during the day and attending groups. We discussed a variety of coping skills she can employ when anxious. Vital signs reviewed.
[2017-09-02] MEDS ORDERED: QUEtiapine 25 MG TAB PO ONE (10:00)
[2017-09-02] MEDS: NICOTINE POLACRILEX 2 MG GUM BUCCAL PRN ×3 (10:10→22:32)
[2017-09-02] MEDS: QUEtiapine 50 MG TAB PO SCH (12:36)
--- NOTE | 2017-09-02 15:28 | P.PN ---
Progress Note - Text Progress Note Date: 09/02/17 Patient was seen because she continues to have right sided flank pain that radiates to the groin. She has a history of kidney stones and the pain feels similar to the pain she had when she had the stones. I advised her to drink a lot of liquids to help passing the stones. Two weeks back she was hospitalized for left sided 3mm kidney stone complicated with a UTI. I think patient is showing drug seeking behavior as her symptoms don't correspond with the CT scan findings from 2 weeks ago. I communicated that to the nursing staff. I don't recommend discharging patient on any narcotics.
[2017-09-02] MEDS: TAMSULOSIN 0.4 MG CAP.ER.24H PO SCH (18:21)
[2017-09-02] MEDS: DOCUSATE 100 MG CAP PO SCH (20:01)
[2017-09-02] MEDS ORDERED: QUEtiapine 100 MG TAB PO SCH (21:00)
[2017-09-02] MEDS ORDERED: ZIPRASIDONE 20 MG CAP PO STA (22:41)
[2017-09-03] MEDS: BUTALB/APAP/CAFF 50-325-40MG TAB PO PRN ×3 (06:51→20:44)
[2017-09-03] MEDS: clonazePAM 0.5 MG TAB PO PRN ×2 (06:52→20:44)
[2017-09-03] MEDS: oxyCODONE-APAP 7.5-325MG 1 EACH TAB PO PRN ×3 (06:52→22:05)
[2017-09-03] MEDS: IBUPROFEN 600 MG TAB PO SCH ×2 (08:06→16:34)
[2017-09-03] MEDS: VENLAFAXINE HCL ER 75 MG CAP PO SCH (08:07)
[2017-09-03] MEDS: METOPROLOL SUCCINATE (ER) 25 MG TAB.ER.24H PO SCH (08:08)
[2017-09-03] MEDS: GABAPENTIN 400 MG CAP PO SCH ×3 (08:08→22:03)
[2017-09-03] MEDS: QUEtiapine 50 MG TAB PO SCH ×2 (08:08→11:47)
[2017-09-03] MEDS: NICOTINE POLACRILEX 2 MG GUM BUCCAL PRN ×2 (08:10→22:06)
[2017-09-03] MEDS ORDERED: OLANZapine 10 MG TAB PO PRN (10:49)
[2017-09-03] MEDS: OLANZapine ODT 10 MG TAB PO PRN (16:38)
[2017-09-03] MEDS ORDERED: KETOROLAC 30 MG/ML 1 ML VIAL IM PRN (17:01)
[2017-09-03] MEDS ORDERED: KETOROLAC 30 MG/ML 1 ML VIAL IM SCH (18:00)
[2017-09-03] MEDS: TAMSULOSIN 0.4 MG CAP.ER.24H PO SCH (18:14)
[2017-09-03] MEDS: DOCUSATE 100 MG CAP PO SCH (22:02)
[2017-09-03] MEDS: QUEtiapine 100 MG TAB PO SCH (22:02)
--- NOTE | 2017-09-03 23:50 | P.PN ---
Progress Note - Text Progress Note Date: 09/03/17 Interval History: Patient approached cross covering attending prior to being summoned and requested to be seen immediately if possible and if not sooner than later due to increased anxiety. Patient states that part of her treatment plan is for Klonopin to be discontinued tomorrow, and offers no opposition to this plan, but she is negativistic about alternatives given her notable list of past treatment failures. She concedes some improvements with Seroquel 25-mg in the morning and later in the day. She reports sleeping poorly last night with 200- mg PO QHS. Patient also articulated a well worded summary of her medical history , struggles with ongoing pain, and how it has impacted her life. Patient stated she was learning to cope better with her pain, but at times when it flares her current regimen is insufficient. Patient stated that because she is a known addict who was being prescribed pain medication, she felt like the Medicine doctor was treating her like she was "drug seeking when I just want help." Mental Status Exam: Appearance: alert, well groomed, dressed in own clothing, appears stated age, steady gait Behavior: psychomotor agitation+++, no abnormal movements, fair eye contact Attitude: cooperative Speech: normal rate, rhythm, fluency, articulation, volume, and prosody; primary language: Sami Mood: anxious Affect: labile, reactive Thought processes: linear Thought content: patient does not appear to be responding to internal stimuli; patient denies auditory and visual hallucinations, no delusions appreciated, denies HI, admits to waxing and waning suicidal thoughts and " being a better option" than current state of anxiety and dysphoria at times Insight: limited Judgment: limited Cognitive: oriented to all 3 spheres, average intelligence Plan: Increase Seroquel to 300-mg PO QHS Patient educated about the physiology and pain regarding nephrolithiasis, if she is having severe breakthrough pain on her current dose of Oxycodone then it should be expected that patient will have a significant reduction with Toradol 30-mg IM for 5 days followed by PO NSAIDS as this the gold standard treatment for pain for nephrolithiasis, the pain should be more tolerable at that point and if not a reassessment is indicated Addendum: Per patient request, start Zyprexa Zydis 10-mg PO BID PRN for breakthrough anxiety, given the patients extensive treatment failure history she can certainly be said to have failed monotherapy and per staff had a good response to Zydis in the past
[2017-09-04] MEDS: oxyCODONE-APAP 7.5-325MG 1 EACH TAB PO PRN ×3 (07:12→21:59)
[2017-09-04] MEDS: BUTALB/APAP/CAFF 50-325-40MG TAB PO PRN ×2 (07:14→16:08)
[2017-09-04] MEDS: GABAPENTIN 400 MG CAP PO SCH ×3 (08:29→21:28)
[2017-09-04] MEDS: METOPROLOL SUCCINATE (ER) 25 MG TAB.ER.24H PO SCH (08:29)
[2017-09-04] MEDS: VENLAFAXINE HCL ER 75 MG CAP PO SCH (08:30)
[2017-09-04] MEDS: clonazePAM 0.5 MG TAB PO PRN (08:30)
[2017-09-04] MEDS: QUEtiapine 50 MG TAB PO SCH ×2 (08:30→12:01)
--- NOTE | 2017-09-04 08:49 | P.PN ---
Progress Note - Text Interval history: The patient's is found in the dining room she follows me to an interview room. She reports that she slept well last night her Seroquel evening dose was titrated 300 mg. She feels that her hopeless thinking is improving suicidal thinking is decreasing. She would like to have social work arrange a support meeting involving the patient's mother. The patient states that she is scheduled to start an IOP program at [facility] on September 08. The patient selectively attend groups. She's been eating. Again she remains largely focused on medications. Mental status exam: The patient is an alert female appearing her stated age. She is dressed in her own clothing. Eye contact is appropriate. She reports that her mood can still be depressed and anxious but she feels the acute hopeless feelings and suicidal thoughts are resolving. She is reporting no homicidal ideation intent or plan. She is endorsing no auditory or visual hallucinations or specific delusions. She does not appear hypomanic or manic. Insight and judgment improving. She remains oriented to person place and date. She demonstrates no abnormal involuntary movements. Plan: The patient will continue on her current medications however we will discontinue the Klonopin today. We will monitor her for safety and encourage her participation in the milieu. Social work will be asked to arrange a support meeting and we will anticipate discharging the patient in the next 1-2 days. Vital signs reviewed.
[2017-09-04] MEDS: OLANZapine ODT 10 MG TAB PO PRN (09:17)
[2017-09-04] MEDS: NICOTINE POLACRILEX 2 MG GUM BUCCAL PRN ×3 (09:20→21:27)
[2017-09-04] MEDS ORDERED: OLANZapine ODT 10 MG TAB PO ONE (15:17)
[2017-09-04] MEDS: TAMSULOSIN 0.4 MG CAP.ER.24H PO SCH (18:16)
[2017-09-04] MEDS: DOCUSATE 100 MG CAP PO SCH (21:00)
[2017-09-04] MEDS: QUEtiapine 100 MG TAB PO SCH (21:00)
[2017-09-05] MEDS: oxyCODONE-APAP 7.5-325MG 1 EACH TAB PO PRN (06:23)
[2017-09-05 06:31] VITALS: TEMP 97.6
[2017-09-05 08:01] VITALS: BP 136/61; PULSE 100; RESP 20
[2017-09-05] MEDS: GABAPENTIN 400 MG CAP PO SCH (08:01)
[2017-09-05] MEDS: METOPROLOL SUCCINATE (ER) 25 MG TAB.ER.24H PO SCH (08:02)
[2017-09-05] MEDS: QUEtiapine 50 MG TAB PO SCH (08:02)
[2017-09-05] MEDS: VENLAFAXINE HCL ER 75 MG CAP PO SCH (08:02)
[2017-09-05] MEDS: BUTALB/APAP/CAFF 50-325-40MG TAB PO PRN (08:03)
[2017-09-05] MEDS: NICOTINE POLACRILEX 2 MG GUM BUCCAL PRN (08:03)
[2017-09-05] MEDS: OLANZapine ODT 10 MG TAB PO PRN (08:05)
--- NOTE | 2017-09-05 08:49 | P.DS ---
Providers Date of admission: 08/30/17 07:04 Expected date of discharge: 09/05/17 Attending physician: Justin Al Consults: 08/30/17 07:11 Consult Physician Routine Consulting Provider: Rayna Allen Consult Reason/Comments: medical management Do you want consulting provider notified?: Already Contacted Primary care physician: Marysol Malcolm - Discharge Diagnosis(es) (1) Bipolar 1 disorder, depressed Current Visit: Yes Status: Chronic Priority: High (2) Opioid use disorder, severe, dependence Current Visit: Yes Status: Acute Priority: High Hospital Course: Brief summary of admission note: This patient is a 27-year-old female who was admitted to the mental health unit through the emergency room with suicidal ideation with a plan to overdose. The patient presented reporting insomnia low appetite and low energy hopeless feelings and anhedonia. She described having suicidal ideation. She is known to us from previous hospitalizations. Her symptoms are confounded by a known history of substance use disorder including opiates and benzodiazepines. For full details please refer to the psychiatric evaluation completed on 08/30/2017. Summary of hospital course: The patient was admitted to the mental health unit she signed in voluntarily. She was originally seen by Dr. St and dilator assumed her care the following Thursday. Originally the patient's was placed back on Thorazine 50 mg 4 times a day along with her Effexor XR. She was also placed on hydrocodone for pain related to nephrolithiasis. She was previously admitted to this hospital on the medical floor for nephrolithiasis. She does have a history of having stents placed and undergoing lithotripsy. The patient was seen by internal medicine. field crop farm worker completed a psychosocial assessment and was in contact with the patient's mother several times during the course of the admission. Under my care we decided to continue the Effexor XR for antidepressant treatment. We discontinued the Thorazine and we gradually tapered off of Klonopin. Seroquel was instituted as a mood stabilizer and titrated as appropriate. Vistaril was discontinued as it was ineffective. We discussed her use of opiates. Her plan is to follow with her urologist Dr. Santos. We discussed the importance of tapering off of the opiates when they are unnecessary. She states her mother has been giving those to her at home and providing supervision of medication. The patient reported a progressive improvement of suicidal ideation and mood symptoms while here and she states that acute suicidal thoughts have resolved. She will go to [facility] Thursday for her follow-up appointment and will attend IOP starting September 08. Mental status exam: The patient is an alert occasion female appearing her stated age. Hygiene and grooming are adequate she is dressed in her own clothing. She reports her mood is better affect is more euthymic. She is reporting no suicidal or homicidal ideation intent or plan. She endorses no auditory or visual hallucinations or specific delusions. She demonstrates no verbal or physical aggressiveness. She demonstrates no tangential thinking loose associations or flight of ideas. There is no evidence of abnormal involuntary movements. She seated calmly in the chair. She spontaneously describes future oriented thinking. She demonstrates no symptoms of hypomania or kianna. Impressions 1. Bipolar 1 disorder most recent depressed, opioid use disorder, rule out benzodiazepine use disorder 2. Nephrolithiasis, history of endometriosis Plan: The patient will be discharged mental health unit today she will return residing with her mother. Social work discussed this plan with her mother and she is agreeable. The patient will continue on Effexor XR 225 mg daily Seroquel 50 mg twice daily and 300 mg at bedtime. The patient plans to taper off of Fioricet and Percocet, these are prescribed by her primary care physician. She is agreeable to having her mother administer medications again. She is instructed to avoid use of alcohol marijuana or any other illicit drug as this would elevate her safety risk. She plans to follow up with [facility] on Thursday and with [facility] for IOP on September 08. The patient is no longer imminent safety risk and is appropriate for transition outpatient mental healthcare. She is instructed to return to the hospital to any acute safety concerns. Patient Condition at Discharge: Stable Plan - Discharge Summary Discharge Rx Participant: No New Discharge Prescriptions: New Nicotine Polacrilex [Nicorette] 2 mg BUCCAL Q2HR PRN #30 gum PRN Reason: Nicotine Cravings QUEtiapine [SEROquel] 50 mg PO BID@0900,1300 #60 tab QUEtiapine FUMARATE [SEROquel] 300 mg PO HS #30 tab Continue Metoprolol Succinate [Toprol XL] 25 mg PO DAILY Gabapentin [Neurontin] 800 mg PO TID Ketorolac [Toradol] 10 mg PO Q6HR #15 tab Tamsulosin [Flomax] 0.4 mg PO PC-SUPPER #15 cap Diphenoxylate HCl/Atropine [Lomotil 2.5-0.025 mg Tablet] 1 tab PO Q8H PRN PRN Reason: Diarrhea oxyCODONE-APAP 7.5-325MG [Percocet 7.5-325 mg] 1 tab PO Q6HR PRN #6 tab PRN Reason: Pain Venlafaxine HCl ER [Effexor XR] 225 mg PO DAILY #90 cap Discontinued Mirtazapine [Remeron] 45 mg PO HS ALPRAZolam [Xanax] 1 mg PO BID PRN PRN Reason: Anxiety Butalb/Acetaminophen/Caffeine [Fioricet 50-300-40 mg Capsule] 1 - 2 cap PO Q6H PRN PRN Reason: Migraine Headache hydrOXYzine PAMOATE [Vistaril] 25 - 50 mg PO TID PRN PRN Reason: Anxiety Lactulose [Cephulac] 20 gm PO DAILY #4 dose oxyCODONE-APAP 10-325MG [Percocet 10-325 mg] 1 tab PO Q8HR PRN #18 tab PRN Reason: Pain Discharge Medication List Metoprolol Succinate [Toprol XL] 25 mg PO DAILY 08/07/17 [History] Gabapentin [Neurontin] 800 mg PO TID 08/14/17 [History] Ketorolac [Toradol] 10 mg PO Q6HR #15 tab 08/16/17 [Rx] Tamsulosin [Flomax] 0.4 mg PO PC-SUPPER #15 cap 08/16/17 [Rx] Diphenoxylate HCl/Atropine [Lomotil 2.5-0.025 mg Tablet] 1 tab PO Q8H PRN [History] Nicotine Polacrilex [Nicorette] 2 mg BUCCAL Q2HR PRN #30 gum 09/05/17 [Rx] QUEtiapine FUMARATE [SEROquel] 300 mg PO HS #30 tab 09/05/17 [Rx] QUEtiapine [SEROquel] 50 mg PO BID@0900,1300 #60 tab 09/05/17 [Rx] Venlafaxine HCl ER [Effexor XR] 225 mg PO DAILY #90 cap 09/05/17 [Rx] oxyCODONE-APAP 7.5-325MG [Percocet 7.5-325 mg] 1 tab PO Q6HR PRN #6 tab [Rx] Follow up Appointment(s)/Referral(s): [facility] [Outside] - 1 Week (Please go to [facility] to complete walk-in intake at [facility] within 2 business days of hospital discharge. Hours- Mon, Wed, Thurs, Fri 830-3 Tues- 1030-5) Marysol Malcolm MD [Primary Care Provider] - 1-2 days Patient Instructions/Handouts: How to Stop Smoking (DC), Bipolar Disorder (DC) , Suicide Prevention for Adults (DC) Activity/Diet/Wound Care/Special Instructions: Follow up with Urology at time of discharge for her kidney stone. Make an apt. before she leaves. Regular diet and activity as tolerated. Keep all scheduled appointments as discussed at time of discharge. Follow up with your PCP in 1-2 days. Remove all firearms from the home. If symptoms return or become worse, call the crisis line at or go to your nearest Emergency Room. For medication refills contact your PCP or outpatient Psychiatrist.
== END 2017-09-05 10:08 | disposition home or self-care (01) | DRG 753 ==
LOC: EC 19:48 → 3MHU 08-30 07:04
PROVIDERS: ADMIT Psychiatry & Neurology Psychiatry; ATTEND Psychiatry & Neurology Psychiatry
DX: F31.9 Bipolar disorder, unspecified (principal); R45.851 Suicidal ideations; F11.19 Opioid abuse with unspecified opioid-induced disorder; F13.19 Sedative, hypnotic or anxiolytic abuse with unspecified sedative, hypnotic or anxiolytic-induced disorder; F17.200 Nicotine dependence, unspecified, uncomplicated; F41.1 Generalized anxiety disorder; F43.10 Post-traumatic stress disorder, unspecified; F60.3 Borderline personality disorder; G47.00 Insomnia, unspecified; N20.0 Calculus of kidney; G89.29 Other chronic pain; E66.3 Overweight; Z76.5 Malingerer [conscious simulation]; Z79.899 Other long term (current) drug therapy; Z81.8 Family history of other mental and behavioral disorders; Z82.49 Family history of ischemic heart disease and other diseases of the circulatory system
CPT/HCPCS: 36415; 80053; 80306; 81001; 81025; 82075; 85025; 87086; 96372; 99285

== ENCOUNTER 2017-09-29 00:14 | Emergency (ER) | payer OTHER ==
[2017-09-29] MEDS ORDERED: SODIUM CHLORIDE 0.9% 1,000 ML IV STA (00:32)
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
[2017-09-29 00:40] LABS: Basophils # (A) 0.1 k/uL (0-0.2); Basophils % (A) 1 %; CH 30.9; CHCM 32.3; Eosinophils # (A) 0.5 k/uL (0-0.7); Eosinophils % (A) 6 %; HCT 41.4 % (34.0-46.0); Luc # (Auto) 0.12; Luc % (Auto) 2; Lymphocytes # (A) 2.3 k/uL (1.0-4.8); Lymphocytes % (A) 31 %; MCH 30.1 pg (25.0-35.0); MCHC 31.3 g/dL (31.0-37.0); MCV 96.1 fL (80.0-100.0); Mean Platelet Volume 7.5; Monocytes # (A) 0.6 k/uL (0-1.0); Monocytes % (A) 8 %; Neutrophils % (A) 53 %; RBC 4.31 m/uL (3.80-5.40); RDW 13.5 % (11.5-15.5); WBC 7.5 k/uL (3.8-10.6); WBC (Perox) 7.55
[2017-09-29 00:52] LABS: ALT 47 U/L (9-52); AST 28 U/L (14-36); Alcohol <10 mg/dL; Alkaline Phosphatase 118 U/L (38-126); Anion Gap 12 mmol/L; Blood Urea Nitrogen 11 mg/dL (7-17); Calcium 9.5 mg/dL (8.4-10.2); Carbon Dioxide 20 mmol/L (22-30); Chloride 107 mmol/L (98-107); Glucose 101 mg/dL (74-99); Non-African American GFR(MDRD) >60 (>60 ml/min/1.73 sqM); Potassium 3.7 mmol/L (3.5-5.1); Salicylate <1.0 mg/dL; Sodium 139 mmol/L (137-145); Total Bilirubin 0.2 mg/dL (0.2-1.3); Total Protein 7.3 g/dL (6.3-8.2)
--- NOTE | 2017-09-29 01:20 | XR ---
EXAMINATION TYPE: XR chest 1V portable DATE OF EXAM: 09/29/2017 COMPARISON: 07/01/2015 HISTORY: Overdose TECHNIQUE: Single frontal view of the chest is obtained. FINDINGS: Heart and mediastinum are normal. Lungs are clear. Diaphragm is normal. There are chest le ads. IMPRESSION: Normal chest. No change.
[2017-09-29 03:23] VITALS: BP 105/70; PULSE 87; RESP 20; TEMP 97.7
== END 2017-09-29 03:24 | disposition home or self-care (01) ==
LOC: EC 00:14
DX: F43.21 Adjustment disorder with depressed mood (principal); T50.991A Poisoning by other drugs, medicaments and biological substances, accidental (unintentional), initial encounter; T42.4X1A Poisoning by benzodiazepines, accidental (unintentional), initial encounter; F19.10 Other psychoactive substance abuse, uncomplicated; R45.851 Suicidal ideations; F32.9 Major depressive disorder, single episode, unspecified; F17.200 Nicotine dependence, unspecified, uncomplicated; Z79.899 Other long term (current) drug therapy; Z88.5 Allergy status to narcotic agent; Z88.8 Allergy status to other drugs, medicaments and biological substances
CPT/HCPCS: 36415; 71010; 80053; 80320; 82075; 83520; 85025; 93005; 96360; 99285

== ENCOUNTER 2017-12-03 21:32 | Emergency (ER) | payer OTHER ==
[2017-12-03 21:46] VITALS: TEMP 97.7
[2017-12-03] MEDS ORDERED: SODIUM CHLORIDE 0.9% 1,000 ML IV STA ×2 (21:59)
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
[2017-12-03 22:46] LABS: Basophils # (A) 0.1 k/uL (0-0.2); Basophils % (A) 1 %; Eosinophils # (A) 0.3 k/uL (0-0.7); Eosinophils % (A) 4 %; HCT 42.3 % (34.0-46.0); HGB 13.6 gm/dL (11.4-16.0); Lymphocytes # (A) 2.7 k/uL (1.0-4.8); Lymphocytes % (A) 33 %; MCH 30.8 pg (25.0-35.0); MCHC 32.1 g/dL (31.0-37.0); MCV 95.8 fL (80.0-100.0); Mean Platelet Volume 7.6; Monocytes # (A) 0.5 k/uL (0-1.0); Monocytes % (A) 6 %; Neutrophils # (A) 4.5 k/uL (1.3-7.7); Neutrophils % (A) 55 %; Platelet Count 302 k/uL (150-450); RBC 4.42 m/uL (3.80-5.40); RDW 13.9 % (11.5-15.5); WBC 8.2 k/uL (3.8-10.6)
[2017-12-03 22:48] LABS: Appearance,Urine Clear (Clear); Bilirubin,Urine Negative (Negative); Blood,Urine Negative (Negative); Color,Urine Light Yellow; Glucose,Urine (UA) Negative (Negative); Ketones,Urine Negative (Negative); Leukocyte Esterase,Urine Negative (Negative); Nitrite,Urine Negative (Negative); PH, Urine 6.5 (5.0-8.0); Protein,Urine Negative (Negative); Specific Gravity,Urine 1.003 (1.001-1.035); Urobilinogen,Urine <2.0 mg/dL (<2.0)
[2017-12-03 22:57] LABS: Amphetamine Screen,Urine Not Detected (NotDetected); Barbiturate Screen,Urine Not Detected (NotDetected); Benzodiazepines Screen,Urine Detected (NotDetected); Cocaine Screen,Urine Not Detected (NotDetected); Methadone Screen, Urine Not Detected (NotDetected); Opiate Screen,Urine Not Detected (NotDetected); Oxycodone Screen, Urine Not Detected (NotDetected); Phencyclidine Screen,Urine Not Detected (NotDetected); Tricyclic Antidepressant,Urine Detected (NotDetected); Urn Cannabinoid Scrn Not Detected (NotDetected)
[2017-12-03 22:58] LABS: ALT 34 U/L (9-52); AST 30 U/L (14-36); Albumin 4.8 g/dL (3.5-5.0); Alcohol <10 mg/dL; Alkaline Phosphatase 95 U/L (38-126); Anion Gap 12 mmol/L; Blood Urea Nitrogen 11 mg/dL (7-17); Calcium 9.8 mg/dL (8.4-10.2); Carbon Dioxide 24 mmol/L (22-30); Chloride 106 mmol/L (98-107); Glucose 94 mg/dL (74-99); Magnesium 1.9 mg/dL (1.6-2.3); Potassium 4.3 mmol/L (3.5-5.1); Sodium 142 mmol/L (137-145); Total Bilirubin 0.4 mg/dL (0.2-1.3); Total Protein 7.9 g/dL (6.3-8.2)
[2017-12-03 23:03] LABS: Creatine Kinase 63 U/L (30-135)
[2017-12-03 23:14] LABS: Creatine Kinase MB <0.2 ng/mL (0.0-2.4)
[2017-12-03] MEDS: IBUPROFEN 800 MG TAB PO STA ×2 (23:21→23:22)
[2017-12-03] MEDS ORDERED: KETAMINE 10 MG/ML 20 ML VIAL IV ONE (23:29)
[2017-12-03] MEDS ORDERED: LORazepam 2 MG/ML INJ IV STA (23:30)
--- NOTE | 2017-12-04 00:26 | CT ---
EXAMINATION TYPE: CT brain len wo con DATE OF EXAM: 12/04/2017 COMPARISON: CT brain 06/30/2015 HISTORY: seizure CT DLP: 1238.00 mGycm Automated exposure control for dose reduction was used. TECHNIQUE: CT scan of the head and cervical spine are performed without contrast. FINDINGS: Ventricles and sulci appear normal. There is no mass effect nor midline shift. There is n o sign of intracranial hemorrhage. The calvarium is intact. The cervical vertebra have normal spacing and alignment. Posterior elements are intact. The skull bas e is intact. Facet joints appear normal. There is no evidence of a fracture. IMPRESSION: Negative CT scan of the brain. Negative CT scan of the cervical spine.
[2017-12-04 00:58] VITALS: BP 103/60; PULSE 94; RESP 20
== END 2017-12-04 01:03 | disposition home or self-care (01) ==
LOC: EC 21:32
DX: M54.2 Cervicalgia (principal); F41.9 Anxiety disorder, unspecified; M54.9 Dorsalgia, unspecified; F31.9 Bipolar disorder, unspecified; F43.10 Post-traumatic stress disorder, unspecified; F17.200 Nicotine dependence, unspecified, uncomplicated; Z71.1 Person with feared health complaint in whom no diagnosis is made; Z86.14 Personal history of Methicillin resistant Staphylococcus aureus infection; Z79.899 Other long term (current) drug therapy; Z88.5 Allergy status to narcotic agent; Z88.6 Allergy status to analgesic agent; Z88.8 Allergy status to other drugs, medicaments and biological substances; Z53.29 Procedure and treatment not carried out because of patient's decision for other reasons
CPT/HCPCS: 36415; 93005; 80053; 82550; 82553; 83735; 85025; 81003; 80306; 80320; 72125; 70450; 99284; 96374; 96375; 96361 ×2; J2060

== ENCOUNTER 2017-12-13 11:17 | Emergency (ER) | payer OTHER ==
[2017-12-13] MEDS ORDERED: SODIUM CHLORIDE 0.9% 1,000 ML IV STA (11:40)
[2017-12-13] MEDS ORDERED: METOCLOPRAMIDE 5 MG/ML 2 ML VIAL IVP STA (11:40)
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
[2017-12-13 11:45] VITALS: RESP 16; TEMP 98.7
[2017-12-13 12:07] LABS: Basophils # (A) 0.1 k/uL (0-0.2); Basophils % (A) 1 %; Eosinophils # (A) 0.6 k/uL (0-0.7); Eosinophils % (A) 8 %; HCT 38.8 % (34.0-46.0); HGB 12.3 gm/dL (11.4-16.0); Lymphocytes # (A) 2.2 k/uL (1.0-4.8); Lymphocytes % (A) 33 %; MCH 30.1 pg (25.0-35.0); MCHC 31.6 g/dL (31.0-37.0); Mean Platelet Volume 7.3; Monocytes # (A) 0.6 k/uL (0-1.0); Monocytes % (A) 8 %; Neutrophils # (A) 3.3 k/uL (1.3-7.7); Neutrophils % (A) 48 %; Platelet Count 263 k/uL (150-450); RBC 4.08 m/uL (3.80-5.40); RDW 12.7 % (11.5-15.5); WBC 6.8 k/uL (3.8-10.6)
[2017-12-13 12:20] LABS: Partial Thromboplastin Time 22.6 sec (22.0-30.0); Prothrombin Time 9.6 sec (9.0-12.0)
[2017-12-13 12:24] LABS: Albumin 3.6 g/dL (3.5-5.0); Amylase <30 U/L (30-110); Anion Gap 9 mmol/L; Calcium 8.9 mg/dL (8.4-10.2); Carbon Dioxide 25 mmol/L (22-30); Chloride 108 mmol/L (98-107); Glucose 103 mg/dL (74-99); Lipase 54 U/L (23-300); Sodium 142 mmol/L (137-145); Total Bilirubin 0.4 mg/dL (0.2-1.3); Total Protein 6.4 g/dL (6.3-8.2)
[2017-12-13 12:27] LABS: ALT 39 U/L (9-52); AST 42 U/L (14-36); Alkaline Phosphatase 90 U/L (38-126); Blood Urea Nitrogen 14 mg/dL (7-17); Potassium 4.6 mmol/L (3.5-5.1)
[2017-12-13 12:40] LABS: Appearance,Urine Cloudy (Clear); Bacteria,Urine Rare /hpf; Bilirubin,Urine Negative (Negative); Blood,Urine Negative (Negative); Color,Urine Yellow; Glucose,Urine (UA) Negative (Negative); Ketones,Urine Negative (Negative); Leukocyte Esterase,Urine Trace (Negative); Mucus,Urine Few /hpf; Nitrite,Urine Negative (Negative); Protein,Urine 2+ (Negative); RBC,Urine 6 /hpf (0-5); Specific Gravity,Urine 1.038 (1.001-1.035); Squamous Epithelial Cell,Urine 58 /hpf (0-4); WBC,Urine 3 /hpf (0-5)
--- NOTE | 2017-12-13 13:44 | CT ---
EXAMINATION TYPE: CT abdomen pelvis wo con DATE OF EXAM: 12/13/2017 COMPARISON: Previous study dated 08/14/2017. HISTORY: Patient complains of right flank pain and dysuria. CT DLP: 780 mGycm Automated exposure control for dose reduction was used. FINDINGS: There is atelectatic change at the left lung base. Visualized portions of the lungs are oth erwise clear. There is no pleural or pericardial fluid. There is a small hiatal hernia. The entire liver has not been imaged. Visualized portions of the liver appear unremarkable. The splee n and gallbladder appear normal. There is a small splenule adjacent to the spleen. Both adrenal glands appear normal. There is no evidence of hydronephrosis or nephrolithiasis. Limited views of the pancreas appear unremarkable. There is no significant retroperitoneal, iliac or inguinal adenopathy. There is follicular change in the ovaries. The uterus is unremarkable. The bladder is not distended. There is no significant diverticular change and there is no radiographic evidence of diverticulitis. There is a large stool load within the colon. The appendix is not visualized with certainty. Small bowel loops are normal in caliber. There is no free fluid and no free air. There is mild degenerative disc disease at L4-5. Limited views of the IMPRESSION: 1. NO EVIDENCE OF HYDRONEPHROSIS OR NEPHROLITHIASIS. 2. SMALL HIATAL HERNIA. 3. CONSTIPATION. 4. DEGENERATIVE DISC DISEASE, L4-5.
[2017-12-13] MEDS ORDERED: IBUPROFEN IV 400 MG in SODIUM CHLORIDE 0.9% 250 ML IV ONE (13:55)
[2017-12-13] MEDS ORDERED: LACTULOSE 20 GM/30 ML CUP PO ONE (13:55)
[2017-12-13] MEDS ORDERED: CYCLOBENZAPRINE 10 MG TAB PO STA (13:55)
[2017-12-13 14:26] VITALS: BP 91/57; PULSE 68
== END 2017-12-13 15:01 | disposition home or self-care (01) ==
LOC: EC 11:17
DX: M54.9 Dorsalgia, unspecified (principal); K44.9 Diaphragmatic hernia without obstruction or gangrene; K59.00 Constipation, unspecified; M51.36 Other intervertebral disc degeneration, lumbar region; R10.9 Unspecified abdominal pain; R11.0 Nausea; R39.198 Other difficulties with micturition; G40.909 Epilepsy, unspecified, not intractable, without status epilepticus; F41.9 Anxiety disorder, unspecified; F31.9 Bipolar disorder, unspecified; F17.200 Nicotine dependence, unspecified, uncomplicated; Z79.899 Other long term (current) drug therapy; Z88.5 Allergy status to narcotic agent; Z88.6 Allergy status to analgesic agent; Z88.8 Allergy status to other drugs, medicaments and biological substances; Z86.14 Personal history of Methicillin resistant Staphylococcus aureus infection
CPT/HCPCS: 36415; 80053; 82150; 83690; 85025; 85610; 85730; 81001; 81025; 74176; 99284; 96365; 96375; 96361 ×2; J2765; J1741

== ENCOUNTER 2018-01-22 20:05 | Observation (INO) | payer OTHER ==
[2018-01-22] MEDS ORDERED: SODIUM CHLORIDE 0.9% 1,000 ML IV ONE (20:51)
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
[2018-01-22] MEDS: SODIUM CHLORIDE 0.9% 1,000 ML IV SCH (21:07)
[2018-01-22 21:25] LABS: Acetaminophen <10.0 ug/mL; Anion Gap 15 mmol/L; Blood Urea Nitrogen 8 mg/dL (7-17); Calcium 9.5 mg/dL (8.4-10.2); Carbon Dioxide 23 mmol/L (22-30); Chloride 105 mmol/L (98-107); Glucose 115 mg/dL (74-99); Magnesium 1.9 mg/dL (1.6-2.3); Salicylate <1.0 mg/dL; Sodium 143 mmol/L (137-145)
[2018-01-22 23:05] LABS: Amphetamine Screen,Urine Not Detected (NotDetected); Barbiturate Screen,Urine Not Detected (NotDetected); Benzodiazepines Screen,Urine Not Detected (NotDetected); Cocaine Screen,Urine Not Detected (NotDetected); Methadone Screen, Urine Not Detected (NotDetected); Opiate Screen,Urine Not Detected (NotDetected); Oxycodone Screen, Urine Detected (NotDetected); Phencyclidine Screen,Urine Not Detected (NotDetected); Tricyclic Antidepressant,Urine Detected (NotDetected); Urn Cannabinoid Scrn Not Detected (NotDetected)
[2018-01-22] MEDS ORDERED: NALOXONE 0.4 MG/ML 1 ML VIAL IV PRN (23:35)
[2018-01-22 23:40] LABS: Basophils # (A) 0.1 k/uL (0-0.2); Basophils % (A) 1 %; Eosinophils # (A) 0.4 k/uL (0-0.7); Eosinophils % (A) 5 %; HCT 38.1 % (34.0-46.0); HGB 12.3 gm/dL (11.4-16.0); Lymphocytes # (A) 2.7 k/uL (1.0-4.8); Lymphocytes % (A) 33 %; MCH 29.3 pg (25.0-35.0); MCHC 32.2 g/dL (31.0-37.0); MCV 91.2 fL (80.0-100.0); Mean Platelet Volume 8.8; Monocytes # (A) 0.5 k/uL (0-1.0); Monocytes % (A) 6 %; Neutrophils # (A) 4.4 k/uL (1.3-7.7); Neutrophils % (A) 54 %; Platelet Count 260 k/uL (150-450); RBC 4.18 m/uL (3.80-5.40); RDW 12.7 % (11.5-15.5); WBC 8.1 k/uL (3.8-10.6)
[2018-01-22] MEDS ORDERED: DEXTROSE 5%-0.45% NACL 1,000 ML IV SCH (23:45)
[2018-01-23 04:08] VITALS: BMI 28.7
[2018-01-23 06:52] LABS: Basophils % (A) 1 %; Eosinophils # (A) 0.3 k/uL (0-0.7); Eosinophils % (A) 5 %; HCT 35.8 % (34.0-46.0); HGB 11.1 gm/dL (11.4-16.0); Lymphocytes % (A) 32 %; MCH 29.2 pg (25.0-35.0); MCV 94.2 fL (80.0-100.0); Mean Platelet Volume 8.3; Monocytes # (A) 0.3 k/uL (0-1.0); Monocytes % (A) 5 %; Neutrophils # (A) 3.4 k/uL (1.3-7.7); Neutrophils % (A) 55 %; Platelet Count 220 k/uL (150-450); RDW 12.7 % (11.5-15.5); WBC 6.2 k/uL (3.8-10.6)
[2018-01-23] MEDS: SODIUM CHLORIDE 0.9% 1,000 ML IV SCH (06:53)
[2018-01-23 07:10] LABS: Anion Gap 10 mmol/L; Blood Urea Nitrogen 6 mg/dL (7-17); Calcium 7.7 mg/dL (8.4-10.2); Carbon Dioxide 25 mmol/L (22-30); Chloride 111 mmol/L (98-107); Glucose 94 mg/dL (74-99); Potassium 3.7 mmol/L (3.5-5.1); Sodium 146 mmol/L (137-145)
[2018-01-23] MEDS ORDERED: IOPAMIDOL-300 CONTRAST 30 ML VIAL (ORAL USE) PO PRN (14:09)
[2018-01-23] MEDS ORDERED: RX INFO: IV CONTRAST WAS GIVEN 1 EACH MISC MISCELLANE PRN (14:09)
[2018-01-23] MEDS ORDERED: KETOROLAC 30 MG/ML 1 ML VIAL IVP PRN (14:10)
--- NOTE | 2018-01-23 15:01 | P.CN ---
Psychiatric Consult - . Consult date: 01/23/18 Consult:: 01/23/18 14:53 Patient was seen for a psychiatry consultation regarding her recent "overdose". Patient said she is addicted to pain pills, goes to addictionologist who prescribes her medications. She said she was doing Klonopin and took 4 Seroquels to help her sleep. She said "my stupid mom called ambulance because she thought I had overdosed". She insisted that she did not overdose, had no desire to hurt herself and it was only part of her drug abuse. However her drug screening was negative for benzodiazepines and positive for oxycodone and tricyclic antidepressants. Patient does not want to stop abusing drugs and insists that she will be doing drugs 1 she gets home and needs to be out of here since she is in pain and she is not getting enough narcotics. She denies psychiatric symptoms to make any diagnosis other than opioid and benzodiazepine/ sedative hypnotic use disorder severe. She also insists that she is not suicidal. This is a white female who was examined while she was in her bed. She has adequate hygiene. She is angry and somewhat agitated. She uses foul language and talks loud. Her speech is spontaneous and goal-directed. Her mood is angry and affect is increased in intensity. She insists that she is not suicidal or homicidal. She wants to go home and continue her substance abuse. She does not express any desire to stop doing drugs. She denies homicidal thoughts. She denies hallucinations and delusional thinking. She is well oriented with adequate memory concentration general knowledge etc. Her insight is adequate but her judgment is impaired as evidenced by her continued desire to abuse drugs and not seek rehab. Assessment: Opioid use disorder severe. Sedative hypnotic use disorder severe. Does not appear to be a suicide risk. Suggestion: Since patient is not at risk for suicide she can be discharged. Since she is not interested in rehab or quitting abusing drugs, referral for rehab is not necessary.
[2018-01-23 15:26] VITALS: BP 108/65; PULSE 95; RESP 18; TEMP 97.3
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
--- NOTE | 2018-01-23 18:35 | P.DS ---
Providers Date of admission: 01/22/18 23:35 Attending physician: Natalia Loza MD Consults: 01/22/18 23:39 Consult Physician Routine Consulting Provider: Susan Myers Consult Reason/Comments: Overdose Do you want consulting provider notified?: Yes Primary care physician: Marysol [facility] Course: Patient later left [facility] Patient Condition at Discharge: Fair Plan - Discharge Summary Discharge Rx Participant: No New Discharge Prescriptions: No Action Gabapentin [Neurontin] 800 mg PO TID #45 tablet QUEtiapine FUMARATE [SEROquel] 600 mg PO HS Venlafaxine HCl [Effexor XR] 225 mg PO DAILY Discharge Medication List Gabapentin [Neurontin] 800 mg PO TID #45 tablet 10/02/17 [Rx] QUEtiapine FUMARATE [SEROquel] 600 mg PO HS 12/03/17 [History] Venlafaxine HCl [Effexor XR] 225 mg PO DAILY 01/22/18 [History] Follow up Appointment(s)/Referral(s): Marysol Malcolm MD [Primary Care Provider] - 1-2 days Discharge Disposition: Left Against Medical Advice
[2018-01-23] MEDS ORDERED: FAMOTIDINE 20 MG TAB PO SCH (21:00)
== END 2018-01-23 15:38 | disposition left against medical advice (07) ==
LOC: EC 20:05 → 6SEL 23:35 → INTOOBSV 23:35 → UNDODISIN 01-23 15:38
PROVIDERS: ADMIT Internal Medicine; ATTEND Internal Medicine
DX: T40.2X2A Poisoning by other opioids, intentional self-harm, initial encounter (principal); R45.851 Suicidal ideations; I45.81 Long QT syndrome; F41.9 Anxiety disorder, unspecified; F17.200 Nicotine dependence, unspecified, uncomplicated; T43.592A Poisoning by other antipsychotics and neuroleptics, intentional self-harm, initial encounter; Y92.9 Unspecified place or not applicable; F32.9 Major depressive disorder, single episode, unspecified; F43.10 Post-traumatic stress disorder, unspecified; G40.909 Epilepsy, unspecified, not intractable, without status epilepticus; R10.31 Right lower quadrant pain; R51 Headache; Z76.5 Malingerer [conscious simulation]; F19.10 Other psychoactive substance abuse, uncomplicated; Z79.899 Other long term (current) drug therapy; Z88.5 Allergy status to narcotic agent; Z88.8 Allergy status to other drugs, medicaments and biological substances; Z86.14 Personal history of Methicillin resistant Staphylococcus aureus infection; Z87.442 Personal history of urinary calculi; Z91.5 Personal history of self-harm; Z81.8 Family history of other mental and behavioral disorders; Z82.49 Family history of ischemic heart disease and other diseases of the circulatory system
CPT/HCPCS: 82075; 96360; 96361; 99285; 36415; 93005; 80048 ×2; 83735; 85025 ×2; 81025; 80306; 83520 ×2; G0378 ×2

== ENCOUNTER 2019-03-28 16:59 | Emergency (ER) | payer OTHER ==
[2019-03-28 17:21] VITALS: TEMP 98.5
[2019-03-28 18:13] LABS: Amorphous Sediment,Urine Few /hpf; Appearance,Urine Turbid (Clear); Bacteria,Urine Rare /hpf; Bilirubin,Urine Negative (Negative); Blood,Urine Small (Negative); Color,Urine Yellow; Glucose,Urine (UA) Negative (Negative); Ketones,Urine Negative (Negative); Leukocyte Esterase,Urine Large (Negative); Mucus,Urine Rare /hpf; Nitrite,Urine Negative (Negative); Protein,Urine Trace (Negative); RBC,Urine 63 /hpf (0-5); Specific Gravity,Urine 1.025 (1.001-1.035); Squamous Epithelial Cell,Urine 6 /hpf (0-4); WBC,Urine 126 /hpf (0-5)
[2019-03-28] MEDS ORDERED: AZITHROMYCIN 500 MG TAB PO STA (18:36)
[2019-03-28] MEDS ORDERED: cefTRIAXone IN SWFI 1,000 MG/10 ML SYRINGE IVP STA (18:36)
[2019-03-28] MEDS ORDERED: ACYCLOVIR 800 MG TAB PO STA (19:43)
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
--- NOTE | 2019-03-28 20:04 | CT ---
EXAMINATION TYPE: CT abdomen pelvis wo con DATE OF EXAM: 03/28/2019 COMPARISON: Prior CT abdomen pelvis 12/13/2018 HISTORY: RT flank pain x2 days. Possible stone CT DLP: 369 mGycm Automated exposure control for dose reduction was used. TECHNIQUE: Helical acquisition of images from the lung bases through the pelvis. FINDINGS: Lack of intravenous contrast could compromise sensitivity. LUNG BASES: No significant abnormality is appreciated. AORTA: No significant abnormality is appreciataed. LIVER/GB: No significant abnormality is appreciated. PANCREAS: No significant abnormality is seen. SPLEEN: No significant abnormality is seen. ADRENALS: No significant abnormality is seen. KIDNEYS: No significant abnormality is seen. REPRODUCTIVE ORGANS: No significant abnormality is seen. URINARY BLADDER: No significant abnormality is seen. BOWEL: No significant abnormality is seen. Appendix shows normal caliber and no inflammatory change. Small luminal focus of increased attenuation is noted. FREE AIR: No Free Air is visible. ASCITES: None visible. PELVIC ADENOPATHY: None visualized. RETROPERITONEAL ADENOPATHY: No Retroperitoneal Adenopathy visible. OSSEOUS STRUCTURES: No significant double change is seen. Degenerative disc changes in the lower lum bar spine are present. IMPRESSION: NONCONTRAST EXAM. No abnormality evident to account for patient's symptoms. Stable findings.
[2019-03-28 20:05] LABS: Basophils % (A) 1 %; Eosinophils # (A) 0.4 k/uL (0-0.7); Eosinophils % (A) 5 %; HCT 38.1 % (34.0-46.0); HGB 12.9 gm/dL (11.4-16.0); Lymphocytes % (A) 21 %; MCH 31.8 pg (25.0-35.0); MCHC 33.9 g/dL (31.0-37.0); MCV 93.9 fL (80.0-100.0); Mean Platelet Volume 7.5; Monocytes # (A) 0.5 k/uL (0-1.0); Monocytes % (A) 5 %; Neutrophils # (A) 6.5 k/uL (1.3-7.7); Neutrophils % (A) 69 %; Platelet Count 271 k/uL (150-450); RBC 4.06 m/uL (3.80-5.40); WBC 9.5 k/uL (3.8-10.6)
[2019-03-28 20:07] VITALS: BP 105/72; PULSE 80; RESP 16
[2019-03-28] MEDS ORDERED: IBUPROFEN 800 MG TAB PO STA (20:08)
[2019-03-28 20:15] LABS: Anion Gap 6 mmol/L; Blood Urea Nitrogen 13 mg/dL (7-17); Calcium 9.6 mg/dL (8.4-10.2); Carbon Dioxide 26 mmol/L (22-30); Chloride 109 mmol/L (98-107); Glucose 100 mg/dL (74-99); Potassium 4.3 mmol/L (3.5-5.1); Sodium 141 mmol/L (137-145)
[2019-03-29 16:18] LABS: C. trachomatis,PCR Negative (Neg,Equiv); Chlamydia trachomatis Source Vagina; N. gonorrhoeae,PCR Negative (Neg,Equiv); Neisseria Source Vagina
== END 2019-03-28 20:45 | disposition home or self-care (01) ==
LOC: EC 16:59
DX: N39.0 Urinary tract infection, site not specified (principal); A60.00 Herpesviral infection of urogenital system, unspecified; F41.9 Anxiety disorder, unspecified; F32.9 Major depressive disorder, single episode, unspecified; F43.10 Post-traumatic stress disorder, unspecified; F17.200 Nicotine dependence, unspecified, uncomplicated; Z86.14 Personal history of Methicillin resistant Staphylococcus aureus infection; Z96.0 Presence of urogenital implants; Z79.899 Other long term (current) drug therapy; Z88.8 Allergy status to other drugs, medicaments and biological substances; Z88.6 Allergy status to analgesic agent; Z88.5 Allergy status to narcotic agent
CPT/HCPCS: 36415; 87529; 80048; 85025; 81001; 81025; 87808; 87491; 87591; 87070; 74176; 99284; 96374; J0696; 87205

== ENCOUNTER 2019-04-12 14:30 | Inpatient (IN) | payer OTHER ==
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
[2019-04-12 15:55] LABS: Amphetamine Screen,Urine Not Detected (NotDetected); Barbiturate Screen,Urine Not Detected (NotDetected); Benzodiazepines Screen,Urine Not Detected (NotDetected); Cocaine Screen,Urine Not Detected (NotDetected); Methadone Screen, Urine Not Detected (NotDetected); Opiate Screen,Urine Not Detected (NotDetected); Oxycodone Screen, Urine Not Detected (NotDetected); Phencyclidine Screen,Urine Not Detected (NotDetected); Tricyclic Antidepressant,Urine Not Detected (NotDetected); Urn Cannabinoid Scrn Not Detected (NotDetected)
[2019-04-12] MEDS ORDERED: MAG HYDROX/AL HYDROX/SIMETH 30 ML CUP PO PRN (18:15)
[2019-04-12] MEDS ORDERED: MAGNESIUM HYDROXIDE 2,400 MG/10 ML CUP PO PRN (18:15)
[2019-04-12] MEDS ORDERED: LORazepam 2 MG/ML INJ IM PRN (18:18)
[2019-04-12] MEDS: LORazepam 1 MG TAB PO PRN (18:28)
[2019-04-12] MEDS: NICOTINE 14MG/24HR PATCH TRANSDERM SCH (18:28)
[2019-04-12] MEDS: ACETAMINOPHEN TAB 325 MG TAB PO PRN (18:28)
[2019-04-12] MEDS ORDERED: PRAZOSIN 1 MG CAP PO STA (20:05)
[2019-04-12] MEDS: LOPERAMIDE 2 MG CAP PO PRN (20:37)
[2019-04-12] MEDS: ONDANSETRON ODT 4 MG TAB PO PRN (20:37)
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
[2019-04-13] MEDS: LORazepam 1 MG TAB PO PRN ×4 (02:11→20:13)
[2019-04-13] MEDS: ACETAMINOPHEN TAB 325 MG TAB PO PRN ×4 (02:11→20:13)
[2019-04-13] MEDS: NICOTINE 14MG/24HR PATCH TRANSDERM SCH (09:10)
[2019-04-13] MEDS: ONDANSETRON ODT 4 MG TAB PO PRN (09:12)
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
[2019-04-13] MEDS: VENLAFAXINE HCL ER 150 MG CAP PO SCH (09:30)
[2019-04-13] MEDS: diphenhydrAMINE 25 MG CAP PO PRN ×2 (09:30→20:13)
[2019-04-13 10:04] LABS: ALT 10 U/L (9-52); AST 13 U/L (14-36); African American GFR (CKD) >90 (>60 ml/min/1.73 sqM); Alkaline Phosphatase 73 U/L (38-126); Anion Gap 8 mmol/L; Blood Urea Nitrogen 9 mg/dL (7-17); Calcium 9.2 mg/dL (8.4-10.2); Carbon Dioxide 25 mmol/L (22-30); Chloride 109 mmol/L (98-107); Cholesterol 145 mg/dL (<200); Glucose 127 mg/dL (74-99); HDL Cholesterol 44 mg/dL (40-60); LDL Cholesterol,Calculated 80 mg/dL (0-99); Potassium 4.4 mmol/L (3.5-5.1); Sodium 142 mmol/L (137-145); Total Bilirubin 0.3 mg/dL (0.2-1.3); Total Protein 6.8 g/dL (6.3-8.2); Triglycerides 104 mg/dL (<150)
[2019-04-13 10:21] LABS: Basophils % (A) 1 %; Eosinophils # (A) 0.2 k/uL (0-0.7); Eosinophils % (A) 4 %; HCT 40.7 % (34.0-46.0); HGB 13.3 gm/dL (11.4-16.0); Lymphocytes # (A) 1.7 k/uL (1.0-4.8); Lymphocytes % (A) 29 %; MCH 31.5 pg (25.0-35.0); MCHC 32.7 g/dL (31.0-37.0); MCV 96.4 fL (80.0-100.0); Mean Platelet Volume 7.3; Monocytes # (A) 0.3 k/uL (0-1.0); Monocytes % (A) 6 %; Neutrophils # (A) 3.4 k/uL (1.3-7.7); Neutrophils % (A) 59 %; Platelet Count 313 k/uL (150-450); RBC 4.22 m/uL (3.80-5.40); RDW 12.6 % (11.5-15.5); WBC 5.8 k/uL (3.8-10.6)
[2019-04-13] MEDS: DICYCLOMINE 10 MG CAP PO PRN ×2 (10:48→20:14)
[2019-04-13 11:04] LABS: Valproic Acid (Depakene) <10.0 ug/mL
[2019-04-13] MEDS: NICOTINE POLACRILEX 2 MG GUM BUCCAL PRN ×2 (17:01→20:13)
[2019-04-13 19:22] VITALS: BMI 24.4
[2019-04-13 19:46] LABS: Hemoglobin A1C 5.3 % (4.0-6.0)
[2019-04-13] MEDS: QUEtiapine 100 MG TAB PO SCH (20:14)
[2019-04-13] MEDS: DIVALPROEX ER 500 MG TAB.ER.24H PO SCH (20:14)
[2019-04-13] MEDS: ZIPRASIDONE 20 MG VIAL IM PRN (21:13)
[2019-04-13 21:18] LABS: Amorphous Sediment,Urine Rare /hpf; Appearance,Urine Turbid (Clear); Bilirubin,Urine Negative (Negative); Blood,Urine Negative (Negative); Color,Urine Yellow; Glucose,Urine (UA) Negative (Negative); Ketones,Urine Negative (Negative); Leukocyte Esterase,Urine Small (Negative); Mucus,Urine Rare /hpf; Nitrite,Urine Negative (Negative); PH, Urine 7.5 (5.0-8.0); Protein,Urine Negative (Negative); Specific Gravity,Urine 1.015 (1.001-1.035); Squamous Epithelial Cell,Urine 8 /hpf (0-4); Urobilinogen,Urine <2.0 mg/dL (<2.0)
[2019-04-13 21:40] LABS: Amphetamine Screen,Urine Not Detected (NotDetected); Benzodiazepines Screen,Urine Detected (NotDetected); Cocaine Screen,Urine Not Detected (NotDetected); Opiate Screen,Urine Not Detected (NotDetected); Phencyclidine Screen,Urine Not Detected (NotDetected)
[2019-04-13 21:41] LABS: Barbiturate Screen,Urine Not Detected (NotDetected); Methadone Screen, Urine Not Detected (NotDetected); Oxycodone Screen, Urine Not Detected (NotDetected); Tricyclic Antidepressant,Urine Not Detected (NotDetected); Urn Cannabinoid Scrn Not Detected (NotDetected)
[2019-04-14] MEDS: DICYCLOMINE 10 MG CAP PO PRN ×2 (07:55→19:05)
[2019-04-14] MEDS: LORazepam 1 MG TAB PO PRN ×3 (07:55→19:05)
[2019-04-14] MEDS: ONDANSETRON ODT 4 MG TAB PO PRN ×2 (07:55→19:05)
[2019-04-14] MEDS: diphenhydrAMINE 25 MG CAP PO PRN ×2 (08:48→19:05)
[2019-04-14] MEDS: VENLAFAXINE HCL ER 150 MG CAP PO SCH (08:48)
[2019-04-14] MEDS: NICOTINE POLACRILEX 2 MG GUM BUCCAL PRN ×3 (08:50→19:06)
--- NOTE | 2019-04-14 09:21 | P.PN ---
Progress Note - Text Interval history: The patient is found in the hallway she follows me to an interview room. She states that her mood is depressed she has hopeless thoughts she feels acutely anxious. He continues to experience acute symptoms of opioid withdrawal. Her CIWA scores were elevated and more Ativan was ordered. She discussed the trouble she's been having with staying sober. She wonders if she should go to [place] after her hospitalization here. She indicates having difficulty sleeping last night appetite is impaired due to nausea. She has some abdominal cramping and diarrhea. We continue to try to address these was symptomatic measures. Mental status exam: The patient is alert she is dressed in her own clothing she is mildly disheveled hygiene is adequate. Speech is fluent spontaneous nonpressured. She reports a depressed mood with some hopeless thoughts and anxiety. She feels safe in the hospital. No homicidal ideation intent or plan. She is reporting no auditory or visual hallucinations or any specific delusions. There is no observed evidence of psychosis. She does not appear hypomanic or manic there are no tangential thoughts loose associations or flight of ideas. She demonstrates no verbal or physical aggressiveness she demonstrates no involuntary repetitive movements. Plan: The patient will continue on her current psychotropic medication. We will titrate the Seroquel further to 50 mg in the morning as well as 100 mg at bedtime for mood symptoms. She is encouraged to stay awake during the day and attending groups. We will monitor her for safety. She is encouraged to consider inpatient chemical dependency treatment. Vital signs reviewed.
[2019-04-14] MEDS: QUEtiapine 50 MG TAB PO SCH (09:30)
[2019-04-14] MEDS: LOPERAMIDE 2 MG CAP PO PRN (09:30)
[2019-04-14] MEDS: ACETAMINOPHEN TAB 325 MG TAB PO PRN ×2 (11:02→19:06)
[2019-04-14] MEDS: ZIPRASIDONE 20 MG VIAL IM PRN ×2 (11:25→20:57)
[2019-04-14] MEDS: DIVALPROEX ER 500 MG TAB.ER.24H PO SCH (20:53)
[2019-04-14] MEDS: QUEtiapine 100 MG TAB PO SCH (20:53)
[2019-04-14] MEDS ORDERED: diphenhydrAMINE 25 MG CAP PO STA (21:48)
[2019-04-15] MEDS: DICYCLOMINE 10 MG CAP PO PRN (06:27)
[2019-04-15] MEDS: LORazepam 1 MG TAB PO PRN ×4 (06:27→22:03)
[2019-04-15] MEDS: ACETAMINOPHEN TAB 325 MG TAB PO PRN ×4 (06:28→21:21)
[2019-04-15] MEDS: diphenhydrAMINE 25 MG CAP PO PRN ×2 (06:28→20:29)
[2019-04-15] MEDS: NICOTINE POLACRILEX 2 MG GUM BUCCAL PRN ×4 (06:31→23:51)
[2019-04-15] MEDS: QUEtiapine 50 MG TAB PO SCH ×2 (08:53→11:41)
[2019-04-15] MEDS: VENLAFAXINE HCL ER 150 MG CAP PO SCH (08:53)
[2019-04-15] MEDS: ONDANSETRON ODT 4 MG TAB PO PRN (10:32)
--- NOTE | 2019-04-15 11:06 | P.PN ---
Progress Note - Text Interval history: The patient is found in the hallway she follows me to an interview room. She reports her mood is down and depressed anxious. She continues to experience symptoms of opiate withdrawal. She has been attempting to attend groups. She states she does want to go to inpatient chemical dependency treatment and she is encouraged to call today to initiate that process. She was able to sleep 6 hours last night. She finds herself labile and restless. Mental status exam: The patient is alert she is dressed in her own clothing she is a disheveled appearance. Eye contact is appropriate speech is fluent spontaneous nonpressured. She endorses a depressed mood with hopelessness and suicidal thoughts, no homicidal ideation intent or plan. She is endorsing no auditory or visual hallucinations or specific delusions. She endorses feelings of anxiety racing thoughts. She frequently moves while seated in the chair. In sight and judgment impaired. She continues to ask for several different types of medications. Plan: The patient will continue on her current medications we will increase his Seroquel to 50 mg twice a day and 100 mg at bedtime. She reports her withdrawal symptoms are mildly better than yesterday. She is encouraged that with each passing day they will improve. She is continuing to use the Ativan we discussed that soon we will have to begin tapering that down. She is encouraged to call for inpatient chemical dependency treatment screening. We will monitor her for safety. She is encouraged to continue participating in the milieu. Vital signs reviewed.
[2019-04-15] MEDS: ZIPRASIDONE 20 MG VIAL IM PRN (13:33)
[2019-04-15] MEDS: QUEtiapine 100 MG TAB PO SCH (20:23)
[2019-04-15] MEDS: DIVALPROEX ER 500 MG TAB.ER.24H PO SCH (20:24)
[2019-04-15] MEDS: GABAPENTIN 400 MG CAP PO SCH (22:37)
[2019-04-15] MEDS: OLANZapine 5 MG TAB PO PRN (23:53)
[2019-04-15] MEDS: diphenhydrAMINE 50 MG CAP PO PRN (23:57)
[2019-04-16] MEDS: ACETAMINOPHEN TAB 325 MG TAB PO PRN ×3 (06:30→19:09)
[2019-04-16] MEDS: LORazepam 1 MG TAB PO PRN ×2 (06:37→12:45)
[2019-04-16] MEDS: NICOTINE POLACRILEX 2 MG GUM BUCCAL PRN ×2 (07:50→19:10)
[2019-04-16] MEDS: diphenhydrAMINE 50 MG CAP PO PRN ×3 (07:54→21:05)
[2019-04-16] MEDS: OLANZapine 5 MG TAB PO PRN (07:54)
[2019-04-16] MEDS: GABAPENTIN 400 MG CAP PO SCH ×3 (07:56→20:11)
[2019-04-16] MEDS: QUEtiapine 50 MG TAB PO SCH (07:56)
[2019-04-16] MEDS: VENLAFAXINE HCL ER 150 MG CAP PO SCH (07:56)
[2019-04-16] MEDS: OLANZapine 5 MG TAB PO SCH ×4 (09:10→21:03)
[2019-04-16] MEDS: MULTIVITAMINS, THERA 1 EACH TAB PO SCH (12:46)
[2019-04-16] MEDS ORDERED: diphenhydrAMINE 25 MG CAP PO ONE (18:10)
[2019-04-16] MEDS ORDERED: diphenhydrAMINE 25 MG CAP ONE (18:23)
[2019-04-16] MEDS: LORazepam 0.5 MG TAB PO PRN (19:43)
[2019-04-16] MEDS ORDERED: PRAZOSIN 1 MG CAP PO SCH (21:00)
[2019-04-16] MEDS ORDERED: GABAPENTIN 100 MG CAP PO STA (21:46)
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
[2019-04-17] MEDS: LORazepam 0.5 MG TAB PO PRN ×3 (06:02→17:03)
[2019-04-17] MEDS: ACETAMINOPHEN TAB 325 MG TAB PO PRN ×2 (06:03→12:03)
[2019-04-17] MEDS: NICOTINE POLACRILEX 2 MG GUM BUCCAL PRN ×5 (06:10→18:07)
[2019-04-17] MEDS: OLANZapine 5 MG TAB PO SCH ×2 (08:31→12:00)
[2019-04-17] MEDS: diphenhydrAMINE 50 MG CAP PO PRN ×2 (08:31→12:00)
[2019-04-17] MEDS: GABAPENTIN 300 MG CAP PO SCH ×3 (08:31→20:16)
[2019-04-17] MEDS: VENLAFAXINE HCL ER 150 MG CAP PO SCH (08:31)
[2019-04-17] MEDS: DICYCLOMINE 10 MG CAP PO PRN (08:31)
[2019-04-17] MEDS ORDERED: OLANZapine 5 MG TAB PO SCH (09:00)
[2019-04-17] MEDS: MULTIVITAMINS, THERA 1 EACH TAB PO SCH (12:03)
[2019-04-17] MEDS ORDERED: OLANZapine 2.5 MG TAB PO PRN (15:16)
[2019-04-17] MEDS ORDERED: diphenhydrAMINE 25 MG CAP PO ONE (18:10)
[2019-04-17] MEDS ORDERED: LORazepam 0.5 MG TAB PO PRN (19:36)
[2019-04-17] MEDS: traZODone HCL 100 MG TAB PO SCH (20:15)
[2019-04-17] MEDS: OLANZapine 2.5 MG TAB PO SCH (20:15)
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
[2019-04-18] MEDS: ACETAMINOPHEN TAB 325 MG TAB PO PRN ×3 (05:40→20:55)
[2019-04-18] MEDS: NICOTINE POLACRILEX 2 MG GUM BUCCAL PRN ×2 (06:10→13:31)
[2019-04-18] MEDS: GABAPENTIN 300 MG CAP PO SCH ×3 (08:13→20:55)
[2019-04-18] MEDS: diphenhydrAMINE 50 MG CAP PO PRN ×3 (08:13→20:55)
[2019-04-18] MEDS: LORazepam 0.5 MG TAB PO SCH ×2 (08:13→13:47)
[2019-04-18] MEDS: OLANZapine 2.5 MG TAB PO SCH ×2 (08:13→12:47)
[2019-04-18] MEDS: VENLAFAXINE HCL ER 150 MG CAP PO SCH (08:13)
[2019-04-18] MEDS: MULTIVITAMINS, THERA 1 EACH TAB PO SCH (12:46)
[2019-04-18] MEDS ORDERED: LORazepam 0.5 MG TAB PO PRN (19:37)
--- NOTE | 2019-04-18 20:13 | PN ---
PROGRESS NOTE DATE OF SERVICE: 04/18/2019 CHIEF COMPLAINT: The patient was depressed and suicidal. She had relapsed to use of heroin and said she attempted a heroin overdose. INTERVAL HISTORY: The patient has been doing fair. She had some distress through most of the day yesterday and into the evening time. She was continuing to make comments that no medications were helping her. She seemed to be a little less agitated overall, though presented with the outward appearance of anxiety where she would pace, she would have some shaking. She was clearly hyperventilating, which seemed to add to some of her distress. Staff documented that she slept 6 hours last night. Today she has been up. She comes out in the day area. She has been doing significantly better today. She has had a very calm manner throughout the day. She has been smiling. She interacts appropriately. She has a much better mood. She attended 2 of the 3 groups today. It is noted that she approached me a few different times about her medications. When I reviewed the structure of her medications with the plan of essentially continuing medications the same, she simply responded with "okay" and then moved on without any signs of distress or anxiety. It is noted that there has been contact with [facility], where the patient is hoping to be admitted because she can be in the treatment facility with her son. My understanding is that there is an opening on April 26. I had a contact with the patient's mother to discuss some of the options. Mother said she would be very concerned about the patient being discharged prior to going to [facility], and that the only reliable option would be for her to be transported directly from this facility to [facility]. She noted that the patient has had 11 overdose attempts that have been serious. She has had significantly life-threatening behaviors relating to her substance use problems. 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 It is noted that she has had a stint in custodial, though following that when she was released in August she went into a three-quarter house; that was one of the best periods she had, when she essentially was constrained around not being able to get any abusive substances. Overall she appears to tolerate her psychotropic medications. MENTAL STATUS: The patient gave good eye contact. She answered questions appropriately. She was somewhat restless in her manner. She did present in a fairly calm manner and was pleasant in her interactions. She was appropriate without any signs of anxiety or agitation. Her mood was reserved, though not down or depressed. ASSESSMENT: I will continue the current diagnosis and treatment plan. I will continue psychotropic medications the same other than decreasing Ativan to 0.5 mg twice a day. We will continue to taper her off of Ativan. We will continue to focus on stabilization and discharge planning. SUZANNE / JANIAN: [id number] /
[2019-04-18] MEDS: traZODone HCL 100 MG TAB PO SCH (20:55)
[2019-04-18] MEDS ORDERED: LORazepam 0.5 MG TAB PO SCH ×2 (21:00)
[2019-04-19] MEDS: NICOTINE POLACRILEX 2 MG GUM BUCCAL PRN ×4 (05:47→20:58)
[2019-04-19] MEDS: ACETAMINOPHEN TAB 325 MG TAB PO PRN ×3 (05:47→20:56)
[2019-04-19] MEDS: GABAPENTIN 300 MG CAP PO SCH ×3 (06:45→20:54)
[2019-04-19] MEDS: OLANZapine 2.5 MG TAB PO SCH ×3 (06:45→15:50)
[2019-04-19] MEDS: diphenhydrAMINE 50 MG CAP PO PRN ×3 (06:54→16:57)
[2019-04-19] MEDS: VENLAFAXINE HCL ER 150 MG CAP PO SCH (08:30)
[2019-04-19] MEDS ORDERED: LORazepam 0.5 MG TAB PO SCH (09:15)
[2019-04-19] MEDS: MULTIVITAMINS, THERA 1 EACH TAB PO SCH (11:59)
[2019-04-19] MEDS: ONDANSETRON ODT 4 MG TAB PO PRN (12:47)
[2019-04-19] MEDS ORDERED: LORazepam 0.5 MG TAB PO ONE (17:02)
[2019-04-19] MEDS ORDERED: LORazepam 0.5 MG TAB PO PRN (17:07)
[2019-04-19] MEDS: traZODone HCL 100 MG TAB PO SCH (20:54)
[2019-04-19] MEDS: DICYCLOMINE 10 MG CAP PO PRN (20:56)
[2019-04-19] MEDS ORDERED: hydrOXYzine PAMOATE 25 MG CAP PO STA (21:30)
[2019-04-20] MEDS: ACETAMINOPHEN TAB 325 MG TAB PO PRN ×3 (05:01→17:51)
[2019-04-20] MEDS: diphenhydrAMINE 50 MG CAP PO PRN (05:05)
[2019-04-20] MEDS: NICOTINE POLACRILEX 2 MG GUM BUCCAL PRN ×3 (05:06→16:48)
[2019-04-20 05:20] VITALS: TEMP 98.7
[2019-04-20] MEDS: GABAPENTIN 300 MG CAP PO SCH ×3 (06:13→21:03)
[2019-04-20] MEDS: OLANZapine 2.5 MG TAB PO SCH ×3 (06:13→16:43)
[2019-04-20] MEDS ORDERED: LORazepam 0.5 MG TAB PO PRN ×3 (08:00→19:38)
[2019-04-20] MEDS: VENLAFAXINE HCL ER 150 MG CAP PO SCH (08:26)
--- NOTE | 2019-04-20 10:07 | PN ---
PROGRESS NOTE DATE OF SERVICE: 04/19/2019 CHIEF COMPLAINT: The patient was depressed and suicidal. She had relapsed to use of heroin and she attempted a heroin overdose. INTERVAL HISTORY: Patient has been doing fairly well overall. She had a quiet evening last night. She was out on the unit. She interacts with others. She continues with some ups and downs in her mood. She mostly seems to get anxious around the idea that if she has any anxiety at all she should take a pill for it, then she will start getting into a vicious cycle with this approaching nurses saying she is desperate for some medication. If she is redirected she is able to calm herself down and get back to fairly even mood. She slept fair last night. Today she has been up. She will attend some groups but not others. We continue the discussion about discharge planning with the anticipated referral date to [facility] on Thursday. The patient is fairly positive about going into that facility, which she has been in before. She tolerates her psychotropic medications. MENTAL STATUS: Patient gave good eye contact. Psychomotor activity was a little restless. She would bounce her legs. She answered questions with clear thoughts. Her affect was a little anxious. She smiled she was friendly. Her mood for the most part was even. She did not present with significant signs of distress. There was no indication of thought disorder. Cognition was clear. ASSESSMENT: I will continue the current diagnosis and treatment plan. I will continue psychotropic medications the same with the plan that she will have one additional dose of Ativan 0.5 mg tomorrow then Ativan will be discontinued altogether. The patient understands the treatment plan. I reviewed her medications and anticipated discharge. We will continue to focus on stabilization and discharge planning. MMODL / JANIAN: [id number] /
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
[2019-04-20] MEDS: MULTIVITAMINS, THERA 1 EACH TAB PO SCH (12:19)
[2019-04-20] MEDS: DICYCLOMINE 10 MG CAP PO PRN (12:19)
[2019-04-20 16:51] VITALS: RESP 16
[2019-04-20] MEDS ORDERED: LORazepam 0.5 MG TAB PO ONE (17:02)
[2019-04-20] MEDS: traZODone HCL 100 MG TAB PO SCH (21:03)
[2019-04-21] MEDS: NICOTINE POLACRILEX 2 MG GUM BUCCAL PRN ×3 (06:55→18:10)
[2019-04-21 07:14] VITALS: BP 119/58; PULSE 98
[2019-04-21] MEDS: GABAPENTIN 300 MG CAP PO SCH ×3 (08:10→20:41)
[2019-04-21] MEDS: VENLAFAXINE HCL ER 150 MG CAP PO SCH (08:10)
[2019-04-21] MEDS: OLANZapine 2.5 MG TAB PO SCH ×4 (08:10→18:20)
[2019-04-21] MEDS: ACETAMINOPHEN TAB 325 MG TAB PO PRN ×2 (08:11→18:09)
--- NOTE | 2019-04-21 09:12 | P.PN ---
Progress Note - Text Interval history: The patient is found in the hallway she follows me to an interview room. She reports that her mood is anxious. I reviewed the notes from the covering psychiatrist. It appears that the patient is being placed at [facility] tomorrow for inpatient chemical dependency treatment. Her medications have been changed she's been placed on Zyprexa. She's been placed on Neurontin. Her Benadryl was discontinued. We spent some time discussing naltrexone is an option for reducing her cravings and she is agreeable. Liver enzymes are within normal limits. She has been attending groups. Mental status exam: The patient is alert she stressor own clothing hygiene grooming improved. She is wearing makeup. Eye contact is appropriate speech is fluent spontaneous nonpressured. She indicates her mood is anxious but overall improving from time of admission. She is reporting no acute suicidal or homicidal ideation intent or plan. She is reporting no auditory or visual hallucinations or any specific delusions. She does not appear hypomanic or manic. Insight and judgment improving. She demonstrates no verbal or physical aggressiveness. She demonstrates no abnormal involuntary movements. Plan: From our standpoint the patient is clinically stabilizing. We will plan to discharge her tomorrow to the inpatient chemical dependency facility. We will restart the Benadryl as needed. She continues to ask for benzodiazepines which we will not prescribe any further. I will prescribe naltrexone 50 mg daily. We will monitor her for safety and encourage her participation in the milieu. Vital signs reviewed.
[2019-04-21] MEDS: diphenhydrAMINE 50 MG CAP PO PRN ×2 (09:25→18:20)
[2019-04-21] MEDS: NALTREXONE HCL 50 MG TAB PO SCH (09:25)
[2019-04-21] MEDS: DICYCLOMINE 10 MG CAP PO PRN (10:03)
[2019-04-21] MEDS: MULTIVITAMINS, THERA 1 EACH TAB PO SCH (12:23)
[2019-04-21] MEDS: traZODone HCL 100 MG TAB PO SCH (20:41)
[2019-04-22] MEDS: OLANZapine 2.5 MG TAB PO SCH (08:31)
[2019-04-22] MEDS: NALTREXONE HCL 50 MG TAB PO SCH (08:31)
[2019-04-22] MEDS: VENLAFAXINE HCL ER 150 MG CAP PO SCH (08:31)
[2019-04-22] MEDS: diphenhydrAMINE 50 MG CAP PO PRN (08:31)
[2019-04-22] MEDS: GABAPENTIN 300 MG CAP PO SCH (08:31)
[2019-04-22] MEDS: ACETAMINOPHEN TAB 325 MG TAB PO PRN (08:32)
[2019-04-22] MEDS: NICOTINE POLACRILEX 2 MG GUM BUCCAL PRN (08:32)
--- NOTE | 2019-04-22 08:42 | P.DS ---
Providers Date of admission: 04/12/19 17:38 Expected date of discharge: 04/22/19 Attending physician: Justin Al Consults: 04/12/19 18:15 Consult Physician Routine Consulting Provider: Rayna Allen Consult Reason/Comments: H&P and medical Do you want consulting provider notified?: Yes Primary care physician: Marysol Malcolm - Discharge Diagnosis(es) (1) Bipolar 1 disorder, depressed Current Visit: Yes Status: Acute Priority: High (2) Opioid use disorder Current Visit: Yes Status: Acute Priority: High (3) Moderate benzodiazepine use disorder Current Visit: Yes Status: Acute Priority: Medium Hospital Course: Brief summary of admission note: This patient is a 28-year-old female who was admitted to the mental health unit through the emergency room for suicidal ideation. The patient states that she attempted suicide the day prior to this admission by going to [place] to try to overdose on heroin. She described feeling hopeless and was overwhelmed with anxiety. She had relapsed with heroin use. Sleep and appetite were poor she was frequently tearful. For full detail please refer to my psychiatric evaluation dated 04/13/2019. Summary of hospital course: The patient was admitted to the mental health unit voluntarily. We reviewed her presenting symptoms and treatment options. Initially we decided to restart her Depakote ER thousand grams at bedtime Seroquel 100 mg at bedtime continue the Effexor XR 150 mg daily. We provided symptomatic measures to treat her opiate withdrawal. She did experience several days of opiate withdrawal which affected her mood of course. That did resolve. Dr. Diana provided several days of coverage and changed her medication regimen. She was taken off of Depakote and Seroquel and placed on Zyprexa with the dose being titrated. Upon my return we added naltrexone to reduce cravings for opiat es. Initially she was not agreeable to inpatient chemical dependency treatment but she changed her mind and called to get placed at [facility]. She is scheduled to start there this morning. The patient notes a resolution of suicidal ideation and she feels equipped to navigate the inpatient chemical dependency program. She was seen by internal medicine for routine history and physical exam. Social work met with the patient several times for discharge planning purposes. Metal status exam: The patient is alert she's restaurant clothing hygiene grooming adequate. Speech is fluent spontaneous nonpressured. She reports her mood is better she is no longer experiencing any suicidal ideation intent or plan she reports no homicidal ideation intent or plan. She is endorsing no auditory or visual hallucinations or any specific delusions. She demonstrates no overt evidence of psychosis. She demonstrates no tangential thinking loose associations or flight of ideas. She does not appear hypomanic or manic. She remains oriented to person place and date. She demonstrates no verbal or physical aggressiveness she demonstrates no involuntary repetitive movements. Insight and judgment have improved. Affect is more euthymic and appropriately expressive. She demonstrates future oriented thinking. Impressions 1. Bipolar 1 disorder most recent depressed, opioid use disorder, benzodiaze pine use disorder Plan: The patient will be discharged mental health unit today and she will begin treatment at [facility] for chemical dependency. She will continue on Effexor XR 150 mg daily trazodone 100 mg at bedtime Zyprexa 7.5 mg 3 times a day Neurontin 600 mg 3 times a day Benadryl 50 mg twice daily as needed and naltrexone 50 mg daily. At this time there is no imminent safety risk she is appropriate for transition to inpatient chemical dependency treatment. Obviously she is instructed to abstain from any use of alcohol marijuana or any illicit drugs as they will elevate her safety risk. She is instructed to return to hospital if any acute safety concerns. Patient Condition at Discharge: Stable Plan - Discharge Summary New Discharge Prescriptions: New diphenhydrAMINE [Benadryl] 50 mg PO BID PRN #60 cap PRN Reason: Anxiety traZODone HCL [Desyrel] 100 mg PO HS #30 tab Venlafaxine HCl ER [Effexor XR] 150 mg PO DAILY #30 cap.er.24h Multivitamins, Thera [Multivitamin (formulary)] 1 each PO DAILY@1200 #30 tab Gabapentin [Neurontin] 600 mg PO TID #90 cap Nicotine Polacrilex [Nicorette] 2 mg BUCCAL Q4HR PRN #60 gum PRN Reason: Nicotine Cravings OLANZapine 7.5 mg PO TID #45 tablet Naltrexone HCl [Revia] 50 mg PO DAILY #30 tab Discontinued Venlafaxine HCl [Effexor] 75 mg PO DAILY Venlafaxine HCl [Effexor] 37.5 mg PO HS Prazosin [Minipress] 5 mg PO HS Divalproex Sodium [Depakote] 500 mg PO HS Discharge Medication List Gabapentin [Neurontin] 600 mg PO TID #90 cap 04/22/19 [Rx] Multivitamins, Thera [Multivitamin (formulary)] 1 each PO DAILY@1200 #30 tab 04/22/19 [Rx] Naltrexone HCl [Revia] 50 mg PO DAILY #30 tab 04/22/19 [Rx] Nicotine Polacrilex [Nicorette] 2 mg BUCCAL Q4HR PRN #60 gum 04/22/19 [Rx] OLANZapine 7.5 mg PO TID #45 tablet 04/22/19 [Rx] Venlafaxine HCl ER [Effexor XR] 150 mg PO DAILY #30 cap.er.24h 04/22/19 [Rx] diphenhydrAMINE [Benadryl] 50 mg PO BID PRN #60 cap 04/22/19 [Rx] traZODone HCL [Desyrel] 100 mg PO HS #30 tab 04/22/19 [Rx] Follow up Appointment(s)/Referral(s): [facility] [Outside] - 04/22/19 11:30 am (for [facility] intake have all medcations with you in the bottles for 04/22 appointment at [facility]. ) Marysol Malcolm MD [Primary Care Provider] - 1-2 days Patient Instructions/Handouts: How to Stop Smoking (GEN), Depression (DC), Anxiety (GEN), Suicide Prevention (DC) Activity/Diet/Wound Care/Special Instructions: Keep your follow up appointments as scheduled. Continue medications as prescribed. No alcohol or street drugs. No access to guns or weapons. Crisis line if needed . When you need refills of your medications contact your psychiatrist or primary care physician.
== END 2019-04-22 10:58 | disposition home or self-care (01) | DRG 885 ==
LOC: EC 14:30 → 3MHU 17:38
PROVIDERS: ADMIT Psychiatry & Neurology Psychiatry; ATTEND Psychiatry & Neurology Psychiatry
DX: F31.30 Bipolar disorder, current episode depressed, mild or moderate severity, unspecified (principal); R45.851 Suicidal ideations; F11.23 Opioid dependence with withdrawal; G40.909 Epilepsy, unspecified, not intractable, without status epilepticus; F17.200 Nicotine dependence, unspecified, uncomplicated; F43.10 Post-traumatic stress disorder, unspecified; F51.4 Sleep terrors [night terrors]; F41.9 Anxiety disorder, unspecified; F19.10 Other psychoactive substance abuse, uncomplicated; Z62.810 Personal history of physical and sexual abuse in childhood; Z79.899 Other long term (current) drug therapy; Z87.442 Personal history of urinary calculi; Z88.5 Allergy status to narcotic agent; Z88.8 Allergy status to other drugs, medicaments and biological substances; Z86.14 Personal history of Methicillin resistant Staphylococcus aureus infection; Z81.8 Family history of other mental and behavioral disorders; Z82.49 Family history of ischemic heart disease and other diseases of the circulatory system
CPT/HCPCS: 80053; 80061; 80164; 80306; 81001; 81025; 82075; 83036; 84443; 85025; 99285

== ENCOUNTER 2019-09-13 13:02 | Emergency (ER) | payer MEDICAID, OTHER ==
[2019-09-13 13:13] VITALS: RESP 20
[2019-09-13] MEDS ORDERED: HYDROmorphone 0.5 MG/0.5 ML SYRINGE IVP STA (13:42)
[2019-09-13] MEDS ORDERED: METOCLOPRAMIDE 5 MG/ML 2 ML VIAL IVP STA (13:42)
[2019-09-13] MEDS ORDERED: SODIUM CHLORIDE 0.9% 1,000 ML IV STA (13:42)
[2019-09-13] MEDS ORDERED: diphenhydrAMINE 50 MG/ML 1 ML VIAL IVP STA (13:42)
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
--- NOTE | 2019-09-13 14:29 | ED ---
Medical Decision Making - Medical Decision Making She reports that she feels as if her headache is causing some muscle spasms in her neck region, requests muscle relaxer. No nuchal rigidity, meningeal signs are negative. Patient was prescribed 10 Flexeril. Disposition Clinical Impression: Migraine headache Disposition: HOME SELF-CARE Condition: Stable Instructions (If sedation given, give patient instructions): Acute Headache (ED) Additional Instructions: Patient to adhere to previously discussed treatment plan and will take medication(s) as directed. Patient to follow up with PCP in 1-2 days. Patient to return to ED if symptoms do not improve. Follow up with neurologist as scheduled. Return to ER if condition worsens. Prescriptions: Cyclobenzaprine [Flexeril] 1 - 2 tab PO TID #10 tablet Is patient prescribed a controlled substance at d/c from ED?: No Referrals: Edin Lancaster MD [STAFF PHYSICIAN] - 1-2 days Marysol Malcolm MD [Primary Care Provider] - 1-2 days
[2019-09-13 14:33] VITALS: BP 105/63; PULSE 74; TEMP 98.8
== END 2019-09-13 14:28 | disposition home or self-care (01) ==
LOC: EC 13:02
DX: G43.909 Migraine, unspecified, not intractable, without status migrainosus (principal); M62.838 Other muscle spasm; G40.909 Epilepsy, unspecified, not intractable, without status epilepticus; F41.9 Anxiety disorder, unspecified; F32.9 Major depressive disorder, single episode, unspecified; F43.10 Post-traumatic stress disorder, unspecified; F17.200 Nicotine dependence, unspecified, uncomplicated; Z86.14 Personal history of Methicillin resistant Staphylococcus aureus infection; Z79.899 Other long term (current) drug therapy; Z88.8 Allergy status to other drugs, medicaments and biological substances; Z88.6 Allergy status to analgesic agent; Z88.5 Allergy status to narcotic agent
CPT/HCPCS: 99283; 96374; 96375 ×2; 96361; J1200; J2765; J1170

== ENCOUNTER 2019-09-15 14:56 | Emergency (ER) | payer OTHER ==
[2019-09-15 15:00] VITALS: TEMP 98.4
[2019-09-15] MEDS ORDERED: KETOROLAC 30 MG/ML 1 ML VIAL IVP STA (15:08)
[2019-09-15] MEDS ORDERED: SODIUM CHLORIDE 0.9% 1,000 ML IV STA (15:09)
[2019-09-15] MEDS ORDERED: METOCLOPRAMIDE 5 MG/ML 2 ML VIAL IVP STA (15:09)
[2019-09-15] MEDS ORDERED: diphenhydrAMINE 50 MG/ML 1 ML VIAL IVP STA (15:09)
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
[2019-09-15] MEDS ORDERED: methylPREDNISolone SOD SUCCI 125 MG/2 ML VIAL IV STA (15:59)
[2019-09-15] MEDS ORDERED: SUMAtriptan SUCCINATE 6 MG/0.5 ML VIAL SQ STA (16:00)
[2019-09-15] MEDS ORDERED: ACETAMINOPHEN TAB 500 MG TAB PO STA (16:01)
[2019-09-15] MEDS ORDERED: ORPHENADRINE 30 MG/ML 2 ML VIAL IM STA ×2 (16:58→17:08)
[2019-09-15] MEDS ORDERED: ONDANSETRON 4 MG/2 ML VIAL IVP STA (16:58)
[2019-09-15 17:35] VITALS: BP 120/69; PULSE 88; RESP 20
== END 2019-09-15 17:33 | disposition home or self-care (01) ==
LOC: EC 14:56
DX: G43.909 Migraine, unspecified, not intractable, without status migrainosus (principal); F19.11 Other psychoactive substance abuse, in remission; G40.909 Epilepsy, unspecified, not intractable, without status epilepticus; F31.9 Bipolar disorder, unspecified; F41.9 Anxiety disorder, unspecified; F17.200 Nicotine dependence, unspecified, uncomplicated; Z88.5 Allergy status to narcotic agent; Z88.6 Allergy status to analgesic agent; Z88.8 Allergy status to other drugs, medicaments and biological substances; Z79.891 Long term (current) use of opiate analgesic; Z79.899 Other long term (current) drug therapy; Z86.14 Personal history of Methicillin resistant Staphylococcus aureus infection; Z81.8 Family history of other mental and behavioral disorders
CPT/HCPCS: 81025; 99283; 96374; 96375 ×5; 96361; 96372; J3030; J1200; J2360; J2765; J2930; J2405; J1885